=== PATIENT | male | born 1955 | race Caucasian/White ===

== ENCOUNTER → 2016-06-06 | Outpatient (REF) | payer OTHER ==
[~2016-06-06] MED LIST: IRON325T PO; MULT1TAB8 PO; VITA10002 PO
[2016-06-06 11:19] LABS: ALBUMIN 3.9 GM/DL (3.2-5.2); ALBUMIN/GLOBULIN RATIO 1.26 (1.00-1.93); BILIRUBIN,TOTAL 0.7 MG/DL (0.2-1.0); CALCIUM LEVEL 8.7 MG/DL (8.8-10.2); CREATININE FOR GFR 1.39 MG/DL (0.70-1.30); GLOMERULAR FILTRATION RATE 55.3 (>49); MAGNESIUM LEVEL 1.8 MG/DL (1.8-2.4); POTASSIUM SERUM 3.5 MEQ/L (3.5-5.1)
[2016-06-06 11:31] LABS: DIFF SLIDE NUMBER 188; MEAN CORPUSCULAR HGB CONC 34.7 g/dl (32.0-36.5); RED CELL DISTRIBUTION WIDTH 19.6 % (11.5-14.5); WHITE BLOOD COUNT 2.4 K/mm3 (4.0-10.0)
[2016-06-06 12:12] LABS: PLATELET COUNT, AUTOMATED 93 k/mm3 (150-450)
[2016-06-06 12:27] LABS: ANISOCYTOSIS 2+
== END ==
LOC: M SHH 10:40
PROVIDERS: ATTEND Internal Medicine
DX: C92.10 Chronic myeloid leukemia, BCR/ABL-positive, not having achieved remission (principal); E83.42 Hypomagnesemia

== ENCOUNTER → 2016-06-08 | Outpatient (REF) | payer OTHER ==
[2016-06-08 10:53] LABS: DIFF SLIDE NUMBER 170; MEAN CORPUSCULAR HEMOGLOBIN 35.1 pg (27.0-33.0); MEAN CORPUSCULAR VOLUME 100.3 fl (80.0-96.0); RED CELL DISTRIBUTION WIDTH 20.2 % (11.5-14.5)
[2016-06-08 11:10] LABS: PLATELET COUNT, AUTOMATED 65 k/mm3 (150-450); WHITE BLOOD COUNT 1.9 K/mm3 (4.0-10.0)
[2016-06-08 11:19] LABS: BLAST CELLS 3 % (0-0)
[2016-06-08 11:20] LABS: ANISOCYTOSIS 2+
[2016-06-08 11:21] LABS: TEAR DROP CELLS 1+
[2016-06-08 11:22] LABS: ALBUMIN 3.8 GM/DL (3.2-5.2); ALBUMIN/GLOBULIN RATIO 1.27 (1.00-1.93); BILIRUBIN,TOTAL 0.7 MG/DL (0.2-1.0); CALCIUM LEVEL 8.6 MG/DL (8.8-10.2); CREATININE FOR GFR 1.33 MG/DL (0.70-1.30); GLOMERULAR FILTRATION RATE 58.2 (>49); POTASSIUM SERUM 4.1 MEQ/L (3.5-5.1); TOTAL PROTEIN 6.8 GM/DL (6.4-8.2)
== END ==
LOC: M SHH 10:37
PROVIDERS: ATTEND Internal Medicine
DX: C93.00 Acute monoblastic/monocytic leukemia, not having achieved remission (principal); D89.813 Graft-versus-host disease, unspecified; Z94.81 Bone marrow transplant status

== ENCOUNTER → 2016-06-12 | Outpatient (REF) | payer OTHER ==
[2016-06-12 12:32] LABS: MEAN CORPUSCULAR HEMOGLOBIN 36.3 pg (27.0-33.0); MEAN CORPUSCULAR HGB CONC 35.7 g/dl (32.0-36.5); MEAN CORPUSCULAR VOLUME 101.9 fl (80.0-96.0); RED CELL DISTRIBUTION WIDTH 22.4 % (11.5-14.5); WHITE BLOOD COUNT 2.6 K/mm3 (4.0-10.0)
[2016-06-12 12:38] LABS: DIFF SLIDE NUMBER 224; PLATELET COUNT, AUTOMATED 33 k/mm3 (150-450)
[2016-06-12 12:42] LABS: ALBUMIN/GLOBULIN RATIO 1.33 (1.00-1.93); ALKALINE PHOSPHATASE 160 U/L (45-117); ALT/SGPT 58 U/L (12-78); ANION GAP 10 MEQ/L (8-16); AST/SGOT 20 U/L (15-37); BILIRUBIN,TOTAL 0.6 MG/DL (0.2-1.0); BLOOD UREA NITROGEN 14 MG/DL (7-18); CALCIUM LEVEL 8.6 MG/DL (8.8-10.2); CARBON DIOXIDE LEVEL 26 MEQ/L (21-32); CHLORIDE LEVEL 101 MEQ/L (98-107); GLOMERULAR FILTRATION RATE > 60.0 (>49); GLUCOSE, FASTING 99 MG/DL (80-110); POTASSIUM SERUM 3.8 MEQ/L (3.5-5.1); SODIUM LEVEL 137 MEQ/L (136-145); TRIGLYCERIDES LEVEL 346 MG/DL (<150)
[2016-06-12 13:06] LABS: HYPOCHROMASIA 1+
[2016-06-12 13:13] LABS: ANISOCYTOSIS 1+
== END ==
LOC: M LAB REF 11:20
PROVIDERS: ATTEND Internal Medicine
DX: C93.00 Acute monoblastic/monocytic leukemia, not having achieved remission (principal); D89.813 Graft-versus-host disease, unspecified; Z94.81 Bone marrow transplant status

== ENCOUNTER → 2016-06-13 | Outpatient (CLI) | payer OTHER ==
[~2016-06-13] MED LIST changes: +PENTAMIDINE ISETH NEB 300 MG SOLN VIAL INH ONE
== END ==
LOC: M CARPUL 14:49
PROVIDERS: ATTEND Internal Medicine Medical Oncology
DX: C93.12 Chronic myelomonocytic leukemia, in relapse (principal)

== ENCOUNTER → 2016-06-19 | Outpatient (REF) | payer OTHER ==
[~2016-06-19] MED LIST changes: -PENTAMIDINE ISETH NEB 300 MG SOLN VIAL INH ONE
[2016-06-19 09:59] LABS: DIFF SLIDE NUMBER 167; MEAN CORPUSCULAR HEMOGLOBIN 35.5 pg (27.0-33.0); MEAN CORPUSCULAR HGB CONC 33.2 g/dl (32.0-36.5); MEAN CORPUSCULAR VOLUME 106.8 fl (80.0-96.0); RED CELL DISTRIBUTION WIDTH 23.5 % (11.5-14.5); WHITE BLOOD COUNT 2.3 K/mm3 (4.0-10.0)
[2016-06-19 10:19] LABS: ALBUMIN 3.6 GM/DL (3.2-5.2); ALBUMIN/GLOBULIN RATIO 1.09 (1.00-1.93); ALKALINE PHOSPHATASE 188 U/L (45-117); ALT/SGPT 58 U/L (12-78); ANION GAP 11 MEQ/L (8-16); AST/SGOT 20 U/L (15-37); BILIRUBIN,TOTAL 0.4 MG/DL (0.2-1.0); BLOOD UREA NITROGEN 12 MG/DL (7-18); CALCIUM LEVEL 8.4 MG/DL (8.8-10.2); CARBON DIOXIDE LEVEL 25 MEQ/L (21-32); CHLORIDE LEVEL 103 MEQ/L (98-107); CREATININE FOR GFR 1.08 MG/DL (0.70-1.30); FERRITIN 769 NG/ML (26-388); FREE T4 0.94 NG/DL (0.76-1.46); GLOMERULAR FILTRATION RATE > 60.0 (>49); GLUCOSE, FASTING 99 MG/DL (80-110); POTASSIUM SERUM 3.8 MEQ/L (3.5-5.1); SODIUM LEVEL 139 MEQ/L (136-145); TOTAL PROTEIN 6.9 GM/DL (6.4-8.2); TRIGLYCERIDES LEVEL 165 MG/DL (<150); VITAMIN B12 LEVEL > 2000 PG/ML (247-911)
[2016-06-19 10:20] LABS: FOLATE > 24.0 NG/ML (>5.4)
[2016-06-19 10:23] LABS: PLATELET COUNT, AUTOMATED 29 k/mm3 (150-450)
[2016-06-19 10:34] LABS: BASOPHILS 3 % (0-4); BLAST CELLS 4 % (0-0); EOSINOPHILS 1 % (0-5)
[2016-06-19 10:35] LABS: ANISOCYTOSIS 2+; MICROCYTOSIS 1+
[2016-06-22 10:55] LABS: DIFF SLIDE NUMBER 184; MEAN CORPUSCULAR HEMOGLOBIN 37.1 pg (27.0-33.0); MEAN CORPUSCULAR VOLUME 105.8 fl (80.0-96.0); RED CELL DISTRIBUTION WIDTH 21.9 % (11.5-14.5); WHITE BLOOD COUNT 2.2 K/mm3 (4.0-10.0)
[2016-06-22 11:02] LABS: PLATELET COUNT, AUTOMATED 31 k/mm3 (150-450)
[2016-06-22 11:04] LABS: ALBUMIN 3.6 GM/DL (3.2-5.2); ALBUMIN/GLOBULIN RATIO 1.13 (1.00-1.93); ALKALINE PHOSPHATASE 193 U/L (45-117); ALT/SGPT 43 U/L (12-78); ANION GAP 9 MEQ/L (8-16); AST/SGOT 16 U/L (15-37); BILIRUBIN,TOTAL 0.8 MG/DL (0.2-1.0); BLOOD UREA NITROGEN 17 MG/DL (7-18); CALCIUM LEVEL 8.5 MG/DL (8.8-10.2); CARBON DIOXIDE LEVEL 25 MEQ/L (21-32); CHLORIDE LEVEL 102 MEQ/L (98-107); CREATININE FOR GFR 1.22 MG/DL (0.70-1.30); GLOMERULAR FILTRATION RATE > 60.0 (>49); GLUCOSE, FASTING 92 MG/DL (80-110); POTASSIUM SERUM 4.1 MEQ/L (3.5-5.1); SODIUM LEVEL 136 MEQ/L (136-145); TOTAL PROTEIN 6.8 GM/DL (6.4-8.2); TRIGLYCERIDES LEVEL 262 MG/DL (<150)
[2016-06-22 11:32] LABS: BLAST CELLS 6 % (0-0); EOSINOPHILS 1 % (0-5)
[2016-06-22 11:34] LABS: ANISOCYTOSIS 2+
== END ==
LOC: M LAB REF 09:30
PROVIDERS: ATTEND Internal Medicine
DX: D89.813 Graft-versus-host disease, unspecified (principal); Z94.81 Bone marrow transplant status; C93.10 Chronic myelomonocytic leukemia not having achieved remission

== ENCOUNTER 2016-06-22 17:51 | Outpatient (CLI) | payer OTHER | END 2016-06-23 02:03 | disposition home or self-care (01) | LOC: M OPCLI5PR 17:51 → M MS5PR 17:53 → M OPCLI5PR 06-23 02:03 | PROVIDERS: ATTEND Internal Medicine Medical Oncology | DX: C93.10 Chronic myelomonocytic leukemia not having achieved remission (principal) | CPT/HCPCS: 36430; 86850; 86900; 86901; 86920; P9038 ==

== ENCOUNTER → 2016-06-22 | Outpatient (REF) | payer OTHER | LOC: M LAB REF 12:47 | PROVIDERS: ATTEND Internal Medicine Medical Oncology | DX: C93.10 Chronic myelomonocytic leukemia not having achieved remission (principal) ==

== ENCOUNTER → 2016-06-22 | Outpatient (REF) | payer OTHER ==
[2016-06-22 10:55] LABS: DIFF SLIDE NUMBER 184; MEAN CORPUSCULAR HEMOGLOBIN 37.1 pg (27.0-33.0); MEAN CORPUSCULAR VOLUME 105.8 fl (80.0-96.0); RED CELL DISTRIBUTION WIDTH 21.9 % (11.5-14.5); WHITE BLOOD COUNT 2.2 K/mm3 (4.0-10.0)
[2016-06-22 11:02] LABS: PLATELET COUNT, AUTOMATED 31 k/mm3 (150-450)
[2016-06-22 11:04] LABS: ALBUMIN 3.6 GM/DL (3.2-5.2); ALBUMIN/GLOBULIN RATIO 1.13 (1.00-1.93); ALKALINE PHOSPHATASE 193 U/L (45-117); ALT/SGPT 43 U/L (12-78); ANION GAP 9 MEQ/L (8-16); AST/SGOT 16 U/L (15-37); BILIRUBIN,TOTAL 0.8 MG/DL (0.2-1.0); BLOOD UREA NITROGEN 17 MG/DL (7-18); CALCIUM LEVEL 8.5 MG/DL (8.8-10.2); CARBON DIOXIDE LEVEL 25 MEQ/L (21-32); CHLORIDE LEVEL 102 MEQ/L (98-107); CREATININE FOR GFR 1.22 MG/DL (0.70-1.30); GLOMERULAR FILTRATION RATE > 60.0 (>49); GLUCOSE, FASTING 92 MG/DL (80-110); POTASSIUM SERUM 4.1 MEQ/L (3.5-5.1); SODIUM LEVEL 136 MEQ/L (136-145); TOTAL PROTEIN 6.8 GM/DL (6.4-8.2); TRIGLYCERIDES LEVEL 262 MG/DL (<150)
[2016-06-22 11:32] LABS: BLAST CELLS 6 % (0-0); EOSINOPHILS 1 % (0-5)
[2016-06-22 11:34] LABS: ANISOCYTOSIS 2+
== END ==
LOC: M LAB REF 10:28
PROVIDERS: ATTEND Internal Medicine
DX: C92.10 Chronic myeloid leukemia, BCR/ABL-positive, not having achieved remission (principal); Z94.84 Stem cells transplant status; D84.9 Immunodeficiency, unspecified

== ENCOUNTER → 2016-06-26 | Outpatient (REF) | payer OTHER ==
[2016-06-26 12:04] LABS: DIFF SLIDE NUMBER 272; MEAN CORPUSCULAR HEMOGLOBIN 34.2 pg (27.0-33.0); MEAN CORPUSCULAR HGB CONC 35.2 g/dl (32.0-36.5); MEAN CORPUSCULAR VOLUME 97.2 fl (80.0-96.0); RED CELL DISTRIBUTION WIDTH 21.5 % (11.5-14.5); WHITE BLOOD COUNT 3.2 K/mm3 (4.0-10.0)
[2016-06-26 12:09] LABS: PLATELET COUNT, AUTOMATED 32 k/mm3 (150-450)
[2016-06-26 12:29] LABS: ALBUMIN 3.7 GM/DL (3.2-5.2); ALBUMIN/GLOBULIN RATIO 1.06 (1.00-1.93); ALKALINE PHOSPHATASE 269 U/L (45-117); ALT/SGPT 51 U/L (12-78); ANION GAP 12 MEQ/L (8-16); AST/SGOT 22 U/L (15-37); BILIRUBIN,TOTAL 0.7 MG/DL (0.2-1.0); BLOOD UREA NITROGEN 14 MG/DL (7-18); CALCIUM LEVEL 8.4 MG/DL (8.8-10.2); CARBON DIOXIDE LEVEL 21 MEQ/L (21-32); CHLORIDE LEVEL 105 MEQ/L (98-107); CREATININE FOR GFR 1.21 MG/DL (0.70-1.30); GLOMERULAR FILTRATION RATE > 60.0 (>49); GLUCOSE, FASTING 107 MG/DL (80-110); POTASSIUM SERUM 3.7 MEQ/L (3.5-5.1); SODIUM LEVEL 138 MEQ/L (136-145); TOTAL PROTEIN 7.2 GM/DL (6.4-8.2); TRIGLYCERIDES LEVEL 175 MG/DL (<150)
[2016-06-26 12:43] LABS: ANISOCYTOSIS 2+; BANDS 1 % (< 11); BLAST CELLS 6 % (0-0); POLYCHROMASIA 1+
== END ==
LOC: M LAB REF 11:51
PROVIDERS: ATTEND Internal Medicine
DX: C92.10 Chronic myeloid leukemia, BCR/ABL-positive, not having achieved remission (principal); Z94.84 Stem cells transplant status; D89.813 Graft-versus-host disease, unspecified

== ENCOUNTER → 2016-06-29 | Outpatient (REF) | payer OTHER ==
[2016-06-29 10:57] LABS: DIFF SLIDE NUMBER 191; MEAN CORPUSCULAR HEMOGLOBIN 33.5 pg (27.0-33.0); MEAN CORPUSCULAR HGB CONC 34.1 g/dl (32.0-36.5); MEAN CORPUSCULAR VOLUME 98.2 fl (80.0-96.0); RED CELL DISTRIBUTION WIDTH 22.6 % (11.5-14.5); WHITE BLOOD COUNT 3.2 K/mm3 (4.0-10.0)
[2016-06-29 11:00] LABS: PLATELET COUNT, AUTOMATED 36 k/mm3 (150-450)
[2016-06-29 11:12] LABS: ALBUMIN 3.7 GM/DL (3.2-5.2); ALBUMIN/GLOBULIN RATIO 1.09 (1.00-1.93); ALKALINE PHOSPHATASE 265 U/L (45-117); ALT/SGPT 38 U/L (12-78); ANION GAP 10 MEQ/L (8-16); AST/SGOT 20 U/L (15-37); BILIRUBIN,TOTAL 0.7 MG/DL (0.2-1.0); BLOOD UREA NITROGEN 15 MG/DL (7-18); CALCIUM LEVEL 8.5 MG/DL (8.8-10.2); CARBON DIOXIDE LEVEL 24 MEQ/L (21-32); CHLORIDE LEVEL 100 MEQ/L (98-107); CREATININE FOR GFR 1.24 MG/DL (0.70-1.30); GLOMERULAR FILTRATION RATE > 60.0 (>49); GLUCOSE, FASTING 93 MG/DL (80-110); POTASSIUM SERUM 3.7 MEQ/L (3.5-5.1); SODIUM LEVEL 134 MEQ/L (136-145); TOTAL PROTEIN 7.1 GM/DL (6.4-8.2)
[2016-06-29 11:18] LABS: ANISOCYTOSIS 3+; BANDS 1 % (< 11); BASOPHILS 2 % (0-4); BLAST CELLS 11 % (0-0); NUCLEATED RED BLOOD CELL 2 % (0-0)
== END ==
LOC: M LAB REF 10:33
PROVIDERS: ATTEND Internal Medicine
DX: C93.10 Chronic myelomonocytic leukemia not having achieved remission (principal); D89.813 Graft-versus-host disease, unspecified; Z94.81 Bone marrow transplant status

== ENCOUNTER → 2016-07-03 | Outpatient (REF) | payer OTHER ==
[2016-07-03 09:37] LABS: DIFF SLIDE NUMBER 148; MEAN CORPUSCULAR HEMOGLOBIN 33.3 pg (27.0-33.0); MEAN CORPUSCULAR HGB CONC 34.6 g/dl (32.0-36.5); MEAN CORPUSCULAR VOLUME 96.3 fl (80.0-96.0); RED CELL DISTRIBUTION WIDTH 22.2 % (11.5-14.5); WHITE BLOOD COUNT 4.5 K/mm3 (4.0-10.0)
[2016-07-03 10:05] LABS: PLATELET COUNT, AUTOMATED 48 k/mm3 (150-450)
[2016-07-03 10:08] LABS: ALBUMIN 3.7 GM/DL (3.2-5.2); ALBUMIN/GLOBULIN RATIO 1.12 (1.00-1.93); BILIRUBIN,TOTAL 0.5 MG/DL (0.2-1.0); CALCIUM LEVEL 8.4 MG/DL (8.8-10.2); CREATININE FOR GFR 1.36 MG/DL (0.70-1.30); GLOMERULAR FILTRATION RATE 56.7 (>49); POTASSIUM SERUM 3.6 MEQ/L (3.5-5.1)
[2016-07-03 10:09] LABS: BLAST CELLS 22 % (0-0); NUCLEATED RED BLOOD CELL 1 % (0-0)
[2016-07-03 10:11] LABS: ANISOCYTOSIS 3+
== END | disposition home or self-care (01) ==
LOC: M LAB REF 09:22
PROVIDERS: ATTEND Internal Medicine
DX: C93.10 Chronic myelomonocytic leukemia not having achieved remission (principal); D89.813 Graft-versus-host disease, unspecified; Z94.81 Bone marrow transplant status

== ENCOUNTER → 2016-07-06 | Outpatient (REF) | payer OTHER ==
[~2016-07-06] MED LIST changes: +ACYC1CAP8 PO; +ALBU17IN INH; +AZIT250T3 PO; +FLOM5CAP PO; +FLUC200T2 PO; +MAGN1TAB25 PO; +MONT10TA2 PO; +PANT40TA2 PO; +PERI0.126 MT; +SIRO1TAB3 PO; +SYMB16INH INH; +TRIA1CR TOP
[2016-07-06 10:08] LABS: DIFF SLIDE NUMBER 176; MEAN CORPUSCULAR HEMOGLOBIN 32.6 pg (27.0-33.0); MEAN CORPUSCULAR HGB CONC 33.8 g/dl (32.0-36.5); MEAN CORPUSCULAR VOLUME 96.4 fl (80.0-96.0); RED CELL DISTRIBUTION WIDTH 22.4 % (11.5-14.5); WHITE BLOOD COUNT 6.3 K/mm3 (4.0-10.0)
[2016-07-06 10:22] LABS: PLATELET COUNT, AUTOMATED 38 k/mm3 (150-450)
[2016-07-06 10:28] LABS: BLAST CELLS 26 % (0-0); EOSINOPHILS 1 % (0-5); NUCLEATED RED BLOOD CELL 1 % (0-0)
[2016-07-06 10:29] LABS: ANISOCYTOSIS 3+
[2016-07-06 10:35] LABS: ALBUMIN 3.5 GM/DL (3.2-5.2); ALBUMIN/GLOBULIN RATIO 1.09 (1.00-1.93); BILIRUBIN,TOTAL 0.5 MG/DL (0.2-1.0); CALCIUM LEVEL 8.3 MG/DL (8.8-10.2); CREATININE FOR GFR 1.43 MG/DL (0.70-1.30); GLOMERULAR FILTRATION RATE 53.5 (>49); POTASSIUM SERUM 3.8 MEQ/L (3.5-5.1); TOTAL PROTEIN 6.7 GM/DL (6.4-8.2)
== END ==
LOC: M LAB REF 09:51
PROVIDERS: ATTEND Internal Medicine
DX: C93.10 Chronic myelomonocytic leukemia not having achieved remission (principal); D89.813 Graft-versus-host disease, unspecified

== ENCOUNTER 2016-07-10 10:12 | Inpatient (IN) | payer OTHER ==
[~2016-07-10] VITALS: Ht 172.7 cm; Wt 60.5 kg
[~2016-07-10 10:12] MED LIST changes: -ACYC1CAP8 PO; -ALBU17IN INH; -AZIT250T3 PO; -FLOM5CAP PO; -FLUC200T2 PO; -MAGN1TAB25 PO; -MONT10TA2 PO; -PANT40TA2 PO; -PERI0.126 MT; -SIRO1TAB3 PO; -SYMB16INH INH; -TRIA1CR TOP
[2016-07-10] MEDS ORDERED: IPRATROPIUM 0.5MG/ALBUTEROL 2.5MG INH SOL UD 3ML (DUONEB)(J7620) As Ordered ONE (10:50)
[2016-07-10] MEDS ORDERED: ALBUTEROL SULFATE 2.5 MG/0.5 ML INH NEB SOLN As Ordered ONE (10:50)
[2016-07-10 11:11] LABS: ABG BASE EXCESS 1.4 (-2.0-2.0); ABG DEVICE NASAL CANN; ABG HCO3 23.7 MEQ/L (22.0-26.0); ABG PARTIAL PRESSURE CO2 28.4 mmHg (35.0-45.0); ABG PARTIAL PRESSURE O2 87.1 mmHg (75.0-100.0); ABG STANDARD HCO3 25.7 MEQ/L (22.0-26.0); ABG TOTAL CO2 24.6 MEQ/L (23.0-31.0)
--- NOTE | 2016-07-10 11:32 | REP ---
AP PORTABLE CHEST: 07/10/2016. Comparison: 04/03/2016, 10/17/2005 chest x-ray, CT chest 04/21/2016. Clinical history: Cough. Findings: There is an indwelling port catheter via the right jugular route with tip in SVC unchanged. Lungs are hyperinflated. Linear atelectatic change left CP angle and left lateral base is resolved from previous study. There is basilar and other interstitial fibrotic change, mild but diffuse. There is right infrahilar subsegmental atelectatic of the patchy density there. No dense consolidation. There is no gross cardiomegaly allowing for portable technique. The aorta is normal. Airway intact. No nodule, acute infiltrate, gross effusion or mass. No widening of the mediastinum. Bones intact. Impression: 1. Underlying interstitial fibrosis without gross infiltrate, nodule, effusion or edema. Some subtle right infrahilar patchy atelectasis suggested. The linear atelectatic changes in the left CP angle and left lateral base are resolved since the March 2016 study. Signed by Keo Urrutia MD 07/10/2016 04:21 P
[2016-07-10 11:46] LABS: DIFF SLIDE NUMBER 172; MEAN CORPUSCULAR HEMOGLOBIN 32.4 pg (27.0-33.0); MEAN CORPUSCULAR HGB CONC 34.1 g/dl (32.0-36.5); MEAN CORPUSCULAR VOLUME 95.2 fl (80.0-96.0); RED CELL DISTRIBUTION WIDTH 20.5 % (11.5-14.5); WHITE BLOOD COUNT 8.5 K/mm3 (4.0-10.0)
[2016-07-10 11:50] LABS: PLATELET COUNT, AUTOMATED 26 k/mm3 (150-450)
[2016-07-10 12:09] LABS: ALBUMIN 3.2 GM/DL (3.2-5.2); ALBUMIN/GLOBULIN RATIO 0.89 (1.00-1.93); ALKALINE PHOSPHATASE 209 U/L (45-117); ALT/SGPT 22 U/L (12-78); AMYLASE 43 U/L (25-115); ANION GAP 14 MEQ/L (8-16); AST/SGOT 20 U/L (15-37); BILIRUBIN,DIRECT 0.1 MG/DL (0.0-0.2); BILIRUBIN,TOTAL 0.4 MG/DL (0.2-1.0); BLOOD UREA NITROGEN 16 MG/DL (7-18); CALCIUM LEVEL 8.3 MG/DL (8.8-10.2); CARBON DIOXIDE LEVEL 23 MEQ/L (21-32); CHLORIDE LEVEL 92 MEQ/L (98-107); CREATININE FOR GFR 1.32 MG/DL (0.70-1.30); GLOMERULAR FILTRATION RATE 58.7 (>49); GLUCOSE, FASTING 114 MG/DL (80-110); MAGNESIUM LEVEL 2.1 MG/DL (1.8-2.4); PHOSPHORUS LEVEL 3.5 MG/DL (2.5-4.9); POTASSIUM SERUM 3.7 MEQ/L (3.5-5.1); SODIUM LEVEL 129 MEQ/L (136-145); TOTAL PROTEIN 6.8 GM/DL (6.4-8.2)
[2016-07-10 12:13] LABS: BLAST CELLS 21 % (0-0)
[2016-07-10 12:14] LABS: ANISOCYTOSIS 2+; POLYCHROMASIA 1+; SMUDGE CELLS 1+
--- NOTE | 2016-07-10 12:16 | REP ---
CT HEAD WITHOUT CONTRAST: HISTORY: Weakness. Areas of decreased attention are present in the periventricular white matter. This represents small vessel ischemic disease. There is no intraparenchymal hemorrhage, mass or midline shift. The ventricular system and cortical sulci are dilated consistent with mild volume loss. There is no extracerebral collection. Mucosal thickening is present in the ethmoid, sphenoid and frontal sinuses, and left mastoid air cells. IMPRESSION: 1. Small vessel ischemic disease. 2. Mild volume loss. Signed by Dereje Elkins MD 07/10/2016 12:17 P
[2016-07-10] MEDS ORDERED: PANT40TA2 PO (12:55)
[2016-07-10] MEDS ORDERED: PERI0.126 MT (12:55)
[2016-07-10] MEDS ORDERED: MAGN1TAB25 PO (12:55)
[2016-07-10] MEDS ORDERED: TRIA1CR TOP (12:55)
[2016-07-10] MEDS ORDERED: AZIT250T3 PO (12:55)
[2016-07-10] MEDS ORDERED: FLUC200T2 PO (12:55)
[2016-07-10] MEDS ORDERED: SYMB16INH INH (12:55)
[2016-07-10] MEDS ORDERED: ALBU17IN INH (12:55)
[2016-07-10] MEDS ORDERED: FLOM5CAP PO (12:55)
[2016-07-10] MEDS ORDERED: ACYC1CAP8 PO (12:55)
[2016-07-10] MEDS ORDERED: SIRO1TAB3 PO (12:55)
[2016-07-10] MEDS ORDERED: MONT10TA2 PO (12:55)
[2016-07-10] MEDS ORDERED: ISOVUE-370 76% 100ML VIAL (Q9967) As Ordered ONE ×2 (13:00→15:19)
[2016-07-10] MEDS ORDERED: NS 1,000 ML IV SCH (13:23)
[2016-07-10] MEDS ORDERED: HEPARIN SOD (PORCINE) 5000 UNITS/ML VIAL SC SCH (13:30)
--- NOTE | 2016-07-10 14:53 | HPEPDOC ---
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 Patient noted that over the last few weeks he has been experiencing numbness and tingling of his hands, specifically thumbs. Then it progressed to his feet bilaterally. Over the last 1 week, he has been having weakness of his legs he notes that it was slow progression. He initially had difficulty with ambulation and imbalance, then requiring a walker and then finally the inability to walk. He denied any trauma or injury. He notes that he has no visual problems, slurred speech or facial weakness. He attributed his symptoms to chemotherapy. Patient also noted a productive cough with yellow / green sputum, no blood. He reports worsening shortness of breath over the last 2 weeks. He denies any fevers or chills at home. Denies any chest pain, palpitations or leg swelling. He does not that he is chronically on Azithromycin 3 times per week. He denies nausea, vomiting, abdominal pain, constipation, diarrhea, or dysuria. Home Medications Scheduled (Acyclovir) 200 Mg Cap 400 MG PO BID (Reported) Azithromycin (Azithromycin) 250 Mg Tab 250 MG PO 3XW (Reported) TAKES MON/WED/FRI AT LUNCH TIME Budesonide/Formoterol (Symbicort 160-4.5 Mcg/Act) 60 Puff/Inhaler Aers 2 PUFF INH BID (Reported) Fluconazole (Fluconazole) 200 Mg Tab 200 MG PO QHS (Reported) Magnesium Oxide (Magnesium) 400 Mg Tab 400 MG PO BID (Reported) Montelukast Sodium (Montelukast Sodium) 10 Mg Tab 10 MG PO QHS (Reported) Pantoprazole Sodium (Pantoprazole Sodium) 40 Mg Tab 40 MG PO DAILY (Reported) Sirolimus (Sirolimus) 1 Mg Tab 1 MG PO DAILY (Reported) Tamsulosin Hydrochloride (Flomax) 0.4 Mg Cap 1 CAP PO BID (Reported) once daily 1/2 hour following the same meal each day Triamcinolone Acet (Triamcinolone Acetonide 0.1% Crm) 1 Dose/15 Gm Cr 1 DOSE TOP BID (Reported) APPLIED OVER ENTIRE BODY Scheduled PRN Albuterol Sulfate (Ventolin Hfa) 200 Puff/8 Gm Aers 2 PUFF INH QID PRN PRN SHORTNESS OF BREATH (Reported) Chlorhexidine Gluconate (Peridex) 0.12 % Kathy 15 ML MT BID PRN PRN BLEEDING GUMS (Reported) Allergies Coded Allergies: No Known Allergies (Unverified , 02/05/15) Past Medical History Medical History 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 Review of Symptoms Other systems Constitutional: Positive weight loss, Loss of appetite, No recent trauma Eyes: No visual changes or eye pain Ears, Nose, Throat: Denies nose bleeds, or difficulty swallowing Cardiovascular: Denies chest pain, sweating, or orthopnea Respiratory: Positive productive cough, No wheezing, Positive shortness of breath GI: Christian nausea, vomiting, abdominal pain, diarrhea or constipation : Denies pain with urination or frequency Musculoskeletal: Denies joint pain or swelling Neuro / Psych: Weakens of hands and feet, numbness and tingling bilaterally Skin: No skin rashes noted All other review of systems negative; otherwise stated in history of present illness Vital Signs - Vitals: BP 129/72, HR 104, RR 18, Sat 95%4LNC, Temp 99.3F - General: Lying in bed, No acute distress, Speaking in full sentences, AAOx3 - HEENT: NC, AT, PERRLA, EOMI - CVS: Tachycardic, regular rhythm, +S1S2, - Lungs: Fair air entry bilaterally, Clear to auscultation, Course lung sounds bilaterally - Abdomen: Soft, Non-distended, Non-tender, + Bowel sounds x 4 - Extremities: + PPx4, No lower extremity edema, No calf tenderness - Neuro: 3/5 muscle strength at feet b/l, 4/5 at leg b/l, 3/5 at hands b/l, 4/5 and upper arm b/l, reports sensory changes b/l of upper and lower extremities - Skin: No visible rashes Laboratory Data Labs 24H Laboratory Tests 2 07/10/16 10:21: Bedside Glucose (Misc Panel) 107 07/10/16 11:01: Arterial Blood pH 7.540H, Arterial Blood Partial Pressure CO2 28.4L, Arterial Blood Partial Pressure O2 87.1, Arterial Blood Total CO2 24.6, Arterial Blood HCO3 23.7, Arterial Blood Base Excess 1.4, Arterial Blood Oxygen Saturation 97.1 , Blood Gas Bicarbonate Standard 25.7, Oxygen Delivery Device NASAL OSIEL 07/10/16 11:30: Aspartate Amino Transf (AST/SGOT) 20, Alanine Aminotransferase (ALT/SGPT) 22, Alkaline Phosphatase 209H, Total Bilirubin 0.4, Direct Bilirubin 0.1, Albumin 3.2, Albumin/Globulin Ratio 0.89L, Amylase Level 43, Anion Gap 14, Anisocytosis 2+, Atypical Lymphocytes 3, Blastocytes 21H, Calcium Level 8.3L, Creatine Kinase MB 1.3, Creatine Kinase MB Relative Index 1.26, Glomerular Filtration Rate 58.7, Lactic Acid (Sepsis) 1.1, Lipase 118, Lymphocytes (Manual) 8L, Macrocytosis 1+, Magnesium Level 2.1, Monocytes (Manual) 1, Neutrophils 67, Phosphorus Level 3.5, Platelet Estimate MARKED DECREASE, Polychromasia 1+, Smudge Cells 1+, Total Creatine Kinase 103, Total Protein 6.8, Troponin I < 0.02 CBC/BMP Laboratory Tests 07/10/16 11:30 Red Blood Count 2.20 L, Mean Corpuscular Volume 95.2, Mean Corpuscular Hemoglobin 32.4, Mean Corpuscular Hemoglobin Concent 34.1, Red Cell Distribution Width 20.5 H Microbiology Microbiology 07/10/16 Blood Culture, Received Pending 07/10/16 Blood Culture, Received Pending Plan / VTE VTE Prophylaxis Ordered?: Yes Plan Plan Weakness of hands and feet possibly 2/2 GBS, possibly 2/2 cytotoxic effect from chemotherapy, less likely 2/2 cervical - Reports that this has been going on for 2 weeks - Attributed this to chemotherapy and transfusions - Weakness of lower extremities and upper extremities (distal worse than proximal) - CT head negative for acute pathology - Will get stat lumbar puncture to evaluate for increase proteins an oligoclonal bands - Will keep in ICU to monitor for respiratory depression and frequent neurologic checks - Discussed case with neurology (Dr. Ryan) will be on consult Dyspnea 2/2 acute hypoxic respiratory failure possibly 2/2 HCAP, possibly 2/2 PE - Presented with productive cough for 2 weeks, no reported fevers or chills - CXR shows underlying interstitial fibrosis without gross infiltrate, nodule, effusion or edema - No leukocytosis; however WBC count is normal given history of pancytopenia - Will get CTA to evaluate for PE - Will check blood cultures and sputum culture - Will start vancomycin and zosyn and IV fluid hydration Normocytic anemia likely 2/2 chemotherapy and underlying malignancy, possible dysplastic disorder - Hg slightly below baseline of 8 - Will check reticulocyte count and iron panel - Discussed with Heme/Onc (Dr. Day) will give 2 units PRBC transfusion with irradiated and CMV negative blood Thrombocytopenia - Platelet count of 26, below baseline - However no signs of bleeding at this time - Discussed with Heme/Onc; will not need to transfuse unless bleeding or if platelet count is below 15 - However given that he will be going to lumbar puncture will tranfuse platelets to 100 CKD3 - Creatinine appears to be at baseline since early June - Will check urine electrolytes and osmolality - Will c/w IV fluid hydration for infection above CML - s/p stem cell transplant September 2013 - Has been on chemotherapy [Azacitidine], Tacrolimus then Sirolimus History of graft versus host - Has been on acyclovir and azithromycin - Gastrointestinal prophylaxis - Will start protonix DVT prophylaxis - Will start SCDs for now; will hold on heparin until after lumbar puncture ISA CRUZ MD Jul 10, 2016 14:53
[2016-07-10] MEDS ORDERED: ALBUTEROL 90 MCG/ACT 8GM HFA INHALER INH PRN (15:00)
[2016-07-10] MEDS ORDERED: CHLORHEXIDINE GLUCONATE 0.12 % 15ML UDC (PERIDEX ORAL RINSE) MT PRN (15:00)
--- NOTE | 2016-07-10 15:12 | PHACANCOPD ---
PHARMACY VANCOMYCIN DOSING Pt Demographics Demographics Patient Age:60 , Weight: , Gender: male Adjusted Body Weight Date: 07/10/16, Adjusted Body Weight: Kg Events Past 24 Hours Events Past 24 Hours: YES: Other (Worsening SOB over past 2 weeks, productive cough ), Pending Diagnostics Vancomycin Vancomycin indication: HCAP Vancomycin Target Ranges: 15-20 mcg/ml Vancomycin Load Y/N: Yes Load Dose Date Time Vancomycin Load Dose: 1500mg Date: 07/10/16 Time: Vancomycin Dose Date: 07/10/16. Current Vancomycin Dose: [1g IV Q12H] Intermittent Dosing?: No Labs Labs Item Value Date Time White Blood Count 8.5 K/mm3 07/10/16 1130 Platelet Count 26 k/mm3 *L 07/10/16 1130 Creatinine 1.32 MG/DL H 07/10/16 1130 Micro Microbiology 07/10/16 Blood Culture, Received Pending 07/10/16 Blood Culture, Received Pending Creatinine Clearance Date:07/10/16. Estimated Creatinine Clearance: [~56.9ml/min]. Assessment and Plan Maintaining Current Dose?: Yes Reason for dose change: No Dose Change Pharmacist Note Pharmacist Note Date: 07/10/16. Pharmacist note: Day #1 empiric zosyn/vancomycin initiated with a 1500mg loading dose, followed by a maintenance regimen of 1g IV Q12H for the treatment of HCAP - aiming for a goal trough of 15-20 mcg/ml. WBC currently WNL , and scr currently elevated - baseline ~ 1.08. 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 No PMH of vanco use or MRSA here at [facility]. We will monitor the patient and scheduled a trough accordingly. ALVA SMITH [facility]ARM[facility] Jul 10, 2016 15:12
--- NOTE | 2016-07-10 15:54 | EDDOCDS ---
Physician Documentation [facility] Name: Jacob Almaguer Age: 60 yrs Sex: Male : 1955 Arrival Date: 07/10/2016 Time: 10:12 Bed 5 Private MD: Disposition: 07/10 13:04 Critical Care:. ml Disposition: 07/10/16 13:03 Hospitalization ordered by Michael Diaz for Inpatient Admission. 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 - Bed requested for PCU. - Status is Inpatient Admission. kc3 - Condition is Stable. - Problem is new. - Symptoms are unchanged. Historical: - Allergies: no known allergies; - Home Meds: 1. montelukast 10 mg oral tab 1 tab once daily 2. pantoprazole 40 mg oral TbEC 1 tab once daily 3. sirolimus 1 mg oral tab once daily 4. tamsulosin 0.4 mg oral cp24 1 cap once daily 5. triamcinolone 0.1% twice a day cream 6. acyclovir 200 mg Oral cap 2 caps 2 times per day 7. azithromycin 250 mg Oral tab 3 times a week 8. Chlorhexidine 0.12% solution 15mLs by mouth 2 times a day, swish and spit out. 9. fluconazole 200 mg Oral tab 1 tab once daily 10. Magnesium 1 tab twice a day - PMHx: Leukemia; Umbilical hernia; Bone marrow transplant; Stem cell transplant; - PSHx: fracture repair to right thumb; - Social history: Smoking status: Patient states was never smoker of tobacco. No barriers to communication noted, The patient speaks fluent Jamaican, Speaks appropriately for age. - Family history: Not pertinent. - : The pt / caregiver states he / she is not on anticoagulants. Home medication list is obtained from the patient. - Exposure Risk Screening:: None identified. Vital Signs: 10:21 BP 129 / 72 (auto/); hs1 10:23 Pulse 104 MON; Resp 18; Pulse Ox 95% ; Weight 58.97 kg / 130.01 lbs; Height 5 ft. 8 in. hs1 (172.72 cm); Pain 0/10; 10:27 Temp 99.3(TE); hs1 10:51 BP 148 / 61 (auto/); kc3 10:51 Pulse 102 MON; Pulse Ox 94% ; kc3 11:21 BP 129 / 66 (auto/); kc3 11:21 Pulse 104 MON; Pulse Ox 95% ; kc3 11:51 BP 124 / 59 (auto/); kc3 11:51 Pulse 102 MON; Pulse Ox 95% ; kc3 12:21 BP 125 / 61 (auto/); kc3 12:21 Pulse 104 MON; Pulse Ox 94% ; kc3 12:50 Pulse 96 MON; Pulse Ox 94% ; kc3 12:51 BP 109 / 61 (auto/); kc3 13:21 BP 118 / 58 (auto/); kc3 13:21 Pulse 98 MON; Pulse Ox 97% ; kc3 13:51 BP 125 / 64 (auto/); kc3 13:51 Pulse 98 MON; Pulse Ox 96% ; kc3 14:21 BP 106 / 72 (auto/); kc3 14:21 Pulse 100 MON; Pulse Ox 96% ; kc3 14:51 BP 108 / 57 (auto/); kc3 14:51 Pulse 98 MON; Pulse Ox 95% ; kc3 15:43 BP 124 / 60 LA Sitting (auto/reg); Pulse 70; Resp 20; Temp 99.9(TE); Pulse Ox 96% on bnb R/A; Pain 0/10; 10:23 Body Mass Index 19.77 (58.97 kg, 172.72 cm) hs1 MDM: 10:42 IV Saline Lock ordered. ml 10:42 -Blood Culture (Adults Only), peripheral from different site, or from device/port/PICC ml etc. if present ordered. 10:42 Albuterol 5 mg Nebulizer once ordered. ml 10:42 Albuterol-Ipratropium 3 ml Inhalation once ordered. ml 10:42 Call Respiratory ordered. ml 10:42 Call Respiratory ordered. ml 10:42 CBC with Diff Ordered. EDMS 10:42 MED Profile Ordered. EDMS 10:43 Liver Profile Ordered. EDMS 10:43 Amylase Ordered. EDMS 10:43 Lipase Ordered. EDMS 10:43 -Blood Culture Ordered. EDMS 10:43 CIP Ordered. EDMS 10:43 Troponin Ordered. EDMS 10:43 Lactic Acid (Morton tube on ice) Ordered. EDMS 10:43 -Arterial Blood Gas Ordered. EDMS 10:43 Magnesium Level Ordered. EDMS 10:43 Phosphorous Level Ordered. EDMS 10:43 ECG WITH READING ER PHYS+CARDIAG ordered. EDMS 10:44 Chest, 1 View Ordered. EDMS 10:44 CT Head Without Contrast Ordered. EDMS 10:46 BED REQUEST+ADM ordered. EDMS 11:00 Call Respiratory complete. deg 11:03 -Blood Culture (Adults Only), peripheral from different site, or from device/port/PICC deg etc. if present complete. 11:04 BLOOD CULTURES Ordered. EDMS 11:51 DIFFERENTIAL NO CHARGE Ordered. EDMS 11:51 PLATELET ESTIMATE Ordered. EDMS 11:53 Call Respiratory complete. kc3 11:57 CBC with Diff Reviewed. ml 11:57 -Arterial Blood Gas Reviewed. ml 12:00 TYPE & SCREEN Ordered. EDMS 12:09 Fingerstick Blood Sugar Ordered. EDMS 12:39 CBC with Diff Reviewed. ml 12:39 MED Profile Reviewed. ml 12:39 Liver Profile Reviewed. ml 12:39 Amylase Reviewed. ml 12:39 Lipase Reviewed. ml 12:39 CIP Reviewed. ml 12:39 Troponin Reviewed. ml 12:39 Lactic Acid (Morton tube on ice) Reviewed. ml 12:39 Magnesium Level Reviewed. ml 12:39 Phosphorous Level Reviewed. ml 12:39 PLATELET ESTIMATE Reviewed. ml 12:39 Fingerstick Blood Sugar Reviewed. ml 12:39 Chest, 1 View Reviewed. ml 12:39 CT Head Without Contrast Reviewed. ml 12:59 CT Chest Angio R/O PE Ordered. EDMS 13:10 [facility] Payment Agreement was scanned into [employer] and attached to record. jp5 13:10 Financial registration complete. jp5 13:32 URINALYSIS Ordered. EDMS 13:32 URINE CULTURE Ordered. EDMS 13:34 Admission / Observation Status ordered. EDMS 13:34 2 GRAM SODIUM DIET ordered. EDMS 13:53 OLIGOCLONAL BANDS, CSF Ordered. EDMS 13:53 IMMUNOGLOBULIN G CSF Ordered. EDMS 13:53 CSF GLUCOSE Ordered. EDMS 13:53 CSF T PROTEIN Ordered. EDMS 13:53 CSF BACTERIAL ANTIGENS Ordered. EDMS 13:53 CELL COUNT/DIFF CSF Ordered. EDMS 13:53 CSF CULTURE AND GRAM STAIN Ordered. EDMS 13:54 VIRAL CULTURE Ordered. EDMS 13:54 FUNGUS SMEAR & CULTURE Ordered. EDMS 13:54 NON MOTOR HOTEL MANAGER/CYTOLOGY REQ FOR SERVI Ordered. EDMS 13:54 NON MOTOR HOTEL MANAGER/CYTOLOGY REQ FOR SERVI Ordered. EDMS 13:56 IRRADIAT LEUKOREDUC PACK CELLS Ordered. EDMS 13:59 PCR was scanned into [email or web address] and attached to record. gb 14:48 SPUTUM CULTURE AND GRAM STAIN Ordered. EDMS 15:02 PHERESIS PLATELETS Ordered. EDMS 15:10 FLUORO GUID FOR NEEDLE PLACEMT Ordered. EDMS Administered Medications: 11:37 Drug: Albuterol 5 mg [albuterol sulfate 2.5 mg/0.5 mL solution for nebulization (1 mL)] kjn Route: Nebulizer; 11:37 Drug: Albuterol-Ipratropium 3 ml [ipratropium-albuterol 0.5 mg-3 mg(2.5 mg base)/3 mL kjn nebulization soln (3 mL)] Route: Inhalation; Critical Care Time: 13:04 Critical care time: Bedside Care: 90 minutes, Consultation: 10 minutes. Total time: 100 ml minutes Signatures: Dispatcher [employer] EDMS Tahira Hi MD MD ml Deisy Hobbs, Hair Dryer Unit deg Radha Jovel, Reg Reg gb Ignacia Muniz RN RN hs1 Juani Benedict jp5 Lupe Butler RN RN kc3 Carlene Armstrong RN RN lmg Navarra, Katherine kjn The chart was reviewed and I authenticate all verbal orders and agree with the evaluation and treatment provided.Corrections: (The following items were deleted from the chart) 13:52 13:34 TYPE & SCREEN ordered. EDMS EDMS 13:55 11:59 PACKED CELLS+BBK ordered. EDMS EDMS 13:55 13:52 IRRADIAT LEUKOREDUC PACK CELLS ordered. EDMS EDMS 13:56 13:52 TYPE & SCREEN ordered. EDMS EDMS 15:49 13:51 FLUORO GUID FOR NEEDLE PLACEMT ordered. EDMS EDMS Attachments: 13:10 [facility] Payment Agreement [email or web address]
--- NOTE | 2016-07-10 15:54 | EDDOCDS ---
Nurse's Notes 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 Patient states coughing up yellow sputum for the past couple of weeks. The last date and time the patient was known to be well was was at 10:17 on July 10, 2016. No acute neurological deficit is noted. Pre-hospital glucose is not applicable to this patient. Adult Sepsis Screening: The patient does not have new or worsening altered mentation. Patient's respiratory rate is less than 22. Systolic blood pressure is greater than 100. Patient has a qSOFA score of 0- Negative Sepsis Screen. Suicide/Homicide risk assessment- the patient denies having any suicidal and/or homicidal ideations and does not present with any other emotional, behavioral or mental health complaints. Status: Patient is not a building services coordinator or dependent. Transition of care: patient was not received from another setting of care. 10:14 Acuity: GIGI Level 3 hs1 10:14 Method Of Arrival: Ambulance hs1 Triage Assessment: 10:22 The onset of the patients symptoms was more than three hours ago. General: Appears in hs1 no apparent distress, Behavior is appropriate for age, cooperative. Pain: Denies pain. Neurological: Level of Consciousness is awake, alert, obeys commands, Reports progressive weakness -daughter and states that he has progressed from being able to walk to now walking with walker to no not able to walk. Patient also states increased neuropathy - tingling in hands and feet. Patient having difficulty moving feet. . Cardiovascular: Rhythm is sinus rhythm with unifocal PVCs. Derm: Skin is dry, very dry. Skin is normal. 12:53 HIV screening NA for this visit Offered previously. kc3 Historical: - Allergies: no known allergies; - Home Meds: 1. montelukast 10 mg oral tab 1 tab once daily 2. pantoprazole 40 mg oral TbEC 1 tab once daily 3. sirolimus 1 mg oral tab once daily 4. tamsulosin 0.4 mg oral cp24 1 cap once daily 5. triamcinolone 0.1% twice a day cream 6. acyclovir 200 mg Oral cap 2 caps 2 times per day 7. azithromycin 250 mg Oral tab 3 times a week 8. Chlorhexidine 0.12% solution 15mLs by mouth 2 times a day, swish and spit out. 9. fluconazole 200 mg Oral tab 1 tab once daily 10. Magnesium 1 tab twice a day - PMHx: Leukemia; Umbilical hernia; Bone marrow transplant; Stem cell transplant; - PSHx: fracture repair to right thumb; - Social history: Smoking status: Patient states was never smoker of tobacco. No barriers to communication noted, The patient speaks fluent Portuguese, Speaks appropriately for age. - Family history: Not pertinent. - : The pt / caregiver states he / she is not on anticoagulants. Home medication list is obtained from the patient. - Exposure Risk Screening:: None identified. Screenin:47 Screening information is obtained from the patient. Fall risk: At risk due to weakness. kc3 Assistance ADL's: requires no assistance with activities of daily living. Abuse/DV Screen: The patient / caregiver reports he/she is: not in a situation that causes fear, pain or injury. Nutritional screening: No deficits noted. Advance Directives: Currently, there is a health care proxy, Christa Almaguer, . There is no active DNR order. There is a living will, but a copy is not available at this time. home support is adequate. Assessment: 10:30 General: Appears in no apparent distress, comfortable, Behavior is appropriate for age, kc3 cooperative. Pain: Denies pain. Neurological: Level of Consciousness is awake, alert, obeys commands, Oriented to person, place, time. 11:00 General: Appears in no apparent distress, comfortable, Behavior is appropriate for age, kc3 cooperative. Pain: Denies pain. Neurological: Level of Consciousness is awake, alert, obeys commands, Oriented to person, place, time. Cardiovascular: Rhythm is sinus tachycardia. Respiratory: Airway is patent Respiratory effort is even, unlabored, Breath sounds are coarse bilaterally. Reports cough that is productive. Derm: Skin is fragile, Skin is dry, Skin is normal. Musculoskeletal: Circulation, motion, and sensation intact. 12:00 General: Appears in no apparent distress, comfortable, Behavior is appropriate for age, kc3 cooperative, Pt resting on stretcher with no complaints at this time. Per Dr. Morton, pt allowed to take home transplant meds. Family at bedside. . Pain: Denies pain. Neurological: Level of Consciousness is awake, alert, obeys commands, Oriented to person, place, time. Cardiovascular: Rhythm is irregular. Respiratory: Airway is patent Respiratory effort is even, unlabored. Derm: see above note. 12:45 General: Appears in no apparent distress, comfortable, Behavior is appropriate for age, kc3 cooperative, Pt assisted to comfortable position in bed. Family at bedside. . Pain: Denies pain. Neurological: Level of Consciousness is awake, alert, obeys commands, Oriented to person, place, time, Reports weakness. Cardiovascular: Rhythm is irregular. Respiratory: Airway is patent Respiratory effort is even, unlabored. Derm: See above note. Musculoskeletal: Circulation, motion, and sensation intact. 13:30 General: Appears in no apparent distress, comfortable, Behavior is appropriate for age, kc3 cooperative, Pt resting on stretcher with family at bedside with no complaints at this time. . Pain: Denies pain. Neurological: Level of Consciousness is awake, alert, obeys commands. Cardiovascular: Rhythm is irregular. Respiratory: Airway is patent Respiratory effort is even, unlabored. Derm: see above note. 14:40 General: Appears in no apparent distress, comfortable, Pt resting on stretcher appears kc3 to be sleeping. No complaints reported. Family at bedside. Pt updated on plan of care. Respirations even and unlabored. Pt remains on oxygen while sleeping. Cardiac rhythm is irregular. . 15:50 General: Appears in no apparent distress, comfortable, Behavior is appropriate for age, kc3 cooperative. Pain: Denies pain. Neurological: Level of Consciousness is awake, alert, obeys commands, Oriented to person, place, time, Reports weakness. Cardiovascular: Rhythm is irregular. Respiratory: Airway is patent Respiratory effort is even, unlabored, Reports cough that is productive. Derm: see above note. Musculoskeletal: Circulation, motion, and sensation intact. Vital Signs: 10:21 BP 129 / 72 (auto/); hs1 10:23 Pulse 104 MON; Resp 18; Pulse Ox 95% ; Weight 58.97 kg; Height 5 ft. 8 in. (172.72 cm); hs1 Pain 0/10; 10:27 Temp 99.3(TE); hs1 10:51 BP 148 / 61 (auto/); kc3 10:51 Pulse 102 MON; Pulse Ox 94% ; kc3 11:21 BP 129 / 66 (auto/); kc3 11:21 Pulse 104 MON; Pulse Ox 95% ; kc3 11:51 BP 124 / 59 (auto/); kc3 11:51 Pulse 102 MON; Pulse Ox 95% ; kc3 12:21 BP 125 / 61 (auto/); kc3 12:21 Pulse 104 MON; Pulse Ox 94% ; kc3 12:50 Pulse 96 MON; Pulse Ox 94% ; kc3 12:51 BP 109 / 61 (auto/); kc3 13:21 BP 118 / 58 (auto/); kc3 13:21 Pulse 98 MON; Pulse Ox 97% ; kc3 13:51 BP 125 / 64 (auto/); kc3 13:51 Pulse 98 MON; Pulse Ox 96% ; kc3 14:21 BP 106 / 72 (auto/); kc3 14:21 Pulse 100 MON; Pulse Ox 96% ; kc3 14:51 BP 108 / 57 (auto/); kc3 14:51 Pulse 98 MON; Pulse Ox 95% ; kc3 15:43 BP 124 / 60 LA Sitting (auto/reg); Pulse 70; Resp 20; Temp 99.9(TE); Pulse Ox 96% on bnb R/A; Pain 0/10; 10:23 Body Mass Index 19.77 (58.97 kg, 172.72 cm) hs1 Vitals: 10:27 Glucose Measurement D-Stick in Triage- Normal. Log In Time N/A - ambulance arrival. hs1 ED Course: 10:13 Patient visited by Deisy Hobbs, Meter Reader Inspector. deg 10:13 Patient moved to Waiting deg 10:14 Lupe Butler,RN is Primary Nurse. deg 10:14 Patient visited by Ignacia Muniz RN. hs1 10:14 Patient moved to 5 deg 10:18 Triage Initiated hs1 10:22 Tahira Hi MD is Attending Physician. ml 10:22 Patient visited by Tahira Hi MD. ml 11:02 -Arterial Blood Gas Sent. kjn 11:10 Patient visited by Mic Stanley. jml1 11:10 EKG done. (by ED staff). Reviewed by Tahira Hi MD. jml1 11:30 Accessed using # 22 Carlos needle sterile technique, per hospital protocol. Inf[employer] kc3 in patient's anterior aspect of right upper chest. Clean & dry. Dressing intact. Good blood return. Flushes easily. 11:35 Phosphorous Level Sent. kc3 11:35 Magnesium Level Sent. kc3 11:35 Lactic Acid (Morton tube on ice) Sent. kc3 11:35 Troponin Sent. kc3 11:35 CIP Sent. kc3 11:35 -Blood Culture Sent. kc3 11:35 Lipase Sent. kc3 11:35 Amylase Sent. kc3 11:48 Patient visited by Lupe Butler RN. kc3 12:00 Chest, 1 View Returned. EDMS 12:31 Patient visited by Lupe Butler RN. kc3 12:31 DIFFERENTIAL NO CHARGE Sent. kc3 12:39 CT Head Without Contrast Returned. EDMS 12:47 The patient / caregiver is instructed regarding the plan of care and ED course. kc3 13:00 Patient visited by Lupe Butler RN. kc3 13:03 Michael Diaz is Hospitalizing Provider. ml 13:10 [facility] Payment Agreement was scanned into [employer] and attached to record. jp5 13:59 PCR was scanned into [employer] and attached to record. gb 15:07 Inserted saline lock: 20 gauge in left antecubital area The patient tolerated the kc3 procedure well. 15:10 Patient visited by Lupe Butler RN. kc3 15:44 Patient visited by Louann Barrera PCA. bnb 15:51 No procedures done that require assistance. kc3 Administered Medications: 11:37 Drug: Albuterol 5 mg [albuterol sulfate 2.5 mg/0.5 mL solution for nebulization (1 mL)] kjn Route: Nebulizer; 11:37 Drug: Albuterol-Ipratropium 3 ml [ipratropium-albuterol 0.5 mg-3 mg(2.5 mg base)/3 mL kjn nebulization soln (3 mL)] Route: Inhalation; RT: 11:02 ABG's drawn from right brachial artery specimen sent pt. tolerated well. Initial Med kjn Neb Given as ordered. Respiratory: Breath sounds with crackles bilaterally. Order Results: Lab Order: CBC with Diff; SPEC'M 07/10/16 11:30 Test: WHITE BLOOD COUNT; Value: 8.5; Range: 4.0-10.0; Units: K/mm3; Status: F Test: RED BLOOD COUNT; Value: 2.20; Range: 4.30-6.10; Abnormal: Below low normal; Units: M/mm3; Status: F Test: HEMOGLOBIN; Value: 7.1; Range: 14.0-18.0; Abnormal: Below low normal; Units: g/dl; Status: F Test: HEMATOCRIT; Value: 20.9; Range: 42.0-52.0; Abnormal: Below low normal; Units: %; Status: F Test: MEAN CORPUSCULAR VOLUME; Value: 95.2; Range: 80.0-96.0; Units: fl; Status: F Test: MEAN CORPUSCULAR HEMOGLOBIN; Value: 32.4; Range: 27.0-33.0; Units: pg; Status: F Test: MEAN CORPUSCULAR HGB CONC; Value: 34.1; Range: 32.0-36.5; Units: g/dl; Status: F Test: RED CELL DISTRIBUTION WIDTH; Value: 20.5; Range: 11.5-14.5; Abnormal: Above high normal; Units: %; Status: F Test: PLATELET COUNT, AUTOMATED; Value: 26; Range: 150-450; Abnormal: Critical Low; Units: k/mm3; Status: F Test: NEUTROPHILS; Value: 67; Range: 35-75; Units: %; Status: F Test: LYMPHOCYTES; Value: 8; Range: 16-52; Abnormal: Below low normal; Units: %; Status: F Test: MONOCYTES; Value: 1; Range: 0-8; Units: %; Status: F Test: BLAST CELLS; Value: 21; Range: 0-0; Abnormal: Above high normal; Units: %; Status: F Test: ATYPICAL LYMPH; Value: 3; Range: 0-5; Units: %; Status: F Test: POLYCHROMASIA; Value: 1+; Status: F Test: ANISOCYTOSIS; Value: 2+; Status: F Test: MACROCYTOSIS; Value: 1+; Status: F Test: SMUDGE CELLS; Value: 1+; Status: F Lab Order: MED Profile; SPEC07/10/16 11:30 Test: GLUCOSE, FASTING; Value: 114; Range: 80-110; Abnormal: Above high normal; Units: MG/DL; Status: F Test: BLOOD UREA NITROGEN; Value: 16; Range: 7-18; Units: MG/DL; Status: F Test: CREATININE FOR GFR; Value: 1.32; Range: 0.70-1.30; Abnormal: Above high normal; Units: MG/DL; Status: F Test: GLOMERULAR FILTRATION RATE; Value: 58.7; Range: >49; Status: F Test: SODIUM LEVEL; Value: 129; Range: 136-145; Abnormal: Below low normal; Units: MEQ/L; Status: F Test: POTASSIUM SERUM; Value: 3.7; Range: 3.5-5.1; Units: MEQ/L; Status: F Test: CHLORIDE LEVEL; Value: 92; Range: 98-107; Abnormal: Below low normal; Units: MEQ/L; Status: F Test: CARBON DIOXIDE LEVEL; Value: 23; Range: 21-32; Units: MEQ/L; Status: F Test: ANION GAP; Value: 14; Range: 8-16; Units: MEQ/L; Status: F Test: CALCIUM LEVEL; Value: 8.3; Range: 8.8-10.2; Abnormal: Below low normal; Units: MG/DL; Status: F Test Note: ; Units are mL/min/1.73 m2 Chronic Kidney Disease Staging per NKF: Stage I & II GFR >=60 Normal to Mildly Decreased Stage III GFR 30-59 Moderately Decreased Stage IV GFR 15-29 Severely Decreased Stage V GFR <15 Very Little GFR Left ESRD GFR <15 on BAND PRESSER Lab Order: Liver Profile; SPEC07/10/16 11:30 Test: AST/SGOT; Value: 20; Range: 15-37; Units: U/L; Status: F Test: ALT/SGPT; Value: 22; Range: 12-78; Units: U/L; Status: F Test: ALKALINE PHOSPHATASE; Value: 209; Range: 45-117; Abnormal: Above high normal; Units: U/L; Status: F Test: BILIRUBIN,TOTAL; Value: 0.4; Range: 0.2-1.0; Units: MG/DL; Status: F Test: BILIRUBIN,DIRECT; Value: 0.1; Range: 0.0-0.2; Units: MG/DL; Status: F Test: TOTAL PROTEIN; Value: 6.8; Range: 6.4-8.2; Units: GM/DL; Status: F Test: ALBUMIN; Value: 3.2; Range: 3.2-5.2; Units: GM/DL; Status: F Test: ALBUMIN/GLOBULIN RATIO; Value: 0.89; Range: 1.00-1.93; Abnormal: Below low normal; Status: F Lab Order: Amylase; [facility] 07/10/16 11:30 Test: AMYLASE; Value: 43; Range: 25-115; Units: U/L; Status: F Lab Order: Lipase; [facility] 07/10/16 11:30 Test: LIPASE; Value: 118; Range: 73-393; Units: U/L; Status: F Lab Order: CIP; [facility] 07/10/16 11:30 Test: CPK CREATINE PHOSPHOKINASE; Value: 103; Range: 39-308; Units: U/L; Status: F Test: CK-MB VALUE MASS; Value: 1.3; Range: 0.0-3.6; Units: NG/ML; Status: F Test: MB/CK RELATIVE INDEX; Value: 1.26; Range: < OR =4; Status: F Test Note: ; DIAGNOSIS CRITERIA MMB ng/ml Relative Index (RI) NON-AMI < or = 5 N/A [place] > 5 < or = 4 AMI > 5 > 4 Lab Order: Troponin; [facility] 07/10/16 11:30 Test: TROPONIN I; Value: < 0.02; Range: < 0.10; Units: NG/ML; Status: F Test Note: ; Troponin I Reference Interval for [place] LOCI: 99th Percentile= 0.00-0.045 ng/ml Risk Stratification: <= 0.10 ng/ml Decreased Risk for Adverse Clinical Events. 0.10-1.50 ng/ml Increased Risk for Adverse Clinical Events. Evaluation of additional criterion and/or repeat testing in 2-6 hours is suggested to rule out myocardial damage. >= 1.50 ng/ml Indicative of Myocardial Injury. Lab Order: Lactic Acid (Morton tube on ice); 07/10/16 11:30 Test: LACTIC ACID SEPSIS PROTOCOL; Value: 1.1; Range: 0.4-2.0; Units: MMOL/L; Status: F Lab Order: -Arterial Blood Gas; 07/10/16 11:01 Test: ABG pH (ARTERIAL); Value: 7.540; Range: 7.350-7.450; Abnormal: Above high normal; Units: UNITS; Status: F Test: ABG PARTIAL PRESSURE CO2; Value: 28.4; Range: 35.0-45.0; Abnormal: Below low normal; Units: mmHg; Status: F Test: ABG PARTIAL PRESSURE O2; Value: 87.1; Range: 75.0-100.0; Units: mmHg; Status: F Test: ABG TOTAL CO2; Value: 24.6; Range: 23.0-31.0; Units: MEQ/L; Status: F Test: ABG HCO3; Value: 23.7; Range: 22.0-26.0; Units: MEQ/L; Status: F Test: ABG BASE EXCESS; Value: 1.4; Range: -2.0-2.0; Status: F Test: ABG STANDARD HCO3; Value: 25.7; Range: 22.0-26.0; Units: MEQ/L; Status: F Test: ABG O2 SATURATION; Value: 97.1; Range: 95.0-99.0; Units: %; Status: F Test: ABG DEVICE; Value: NASAL OSIEL; Status: F Lab Order: Magnesium Level; 07/10/16 11:30 Test: MAGNESIUM LEVEL; Value: 2.1; Range: 1.8-2.4; Units: MG/DL; Status: F Lab Order: Phosphorous Level; 07/10/16 11:30 Test: PHOSPHORUS LEVEL; Value: 3.5; Range: 2.5-4.9; Units: MG/DL; Status: F Lab Order: PLATELET ESTIMATE; 07/10/16 11:30 Test: PLATELET ESTIMATE; Value: MARKED DECREASE; Range: NORMAL; Status: F Lab Order: TYPE & SCREEN; 07/10/16 11:30 Test: AB SCREEN (INDIRECT MAX)VIS; Value: NEGATIVE; Status: F Lab Order: Fingerstick Blood Sugar; SPEC'M 07/10/16 10:21 Test: BEDSIDE GLUCOSE; Value: 107; Range: 80-115; Units: MG/DL; Status: F Test Note: ; RN Notified Doctor Notified Radiology Order: Chest, 1 View Test: Chest, 1 View REASON FOR EXAMINATION: Cough; AP PORTABLE CHEST: 07/10/2016.; ; Comparison: 04/03/2016, 10/17/2005 chest x-ray, CT chest 04/21/2016.; ; Clinical history: Cough.; ; Findings: There is an indwelling port catheter via the right jugular route with; tip in SVC unchanged. Lungs are hyperinflated. Linear atelectatic change left; CP angle and left lateral base is resolved from previous study. There is basilar; and other interstitial fibrotic change, mild but diffuse. There is right; infrahilar subsegmental atelectatic of the patchy density there. No dense; consolidation. There is no gross cardiomegaly allowing for portable technique.; The aorta is normal. Airway intact. No nodule, acute infiltrate, gross effusion; or mass. No widening of the mediastinum. Bones intact.; ; Impression:; 1. Underlying interstitial fibrosis without gross infiltrate, nodule, effusion; or edema. Some subtle right infrahilar patchy atelectasis suggested. The linear; atelectatic changes in the left CP angle and left lateral base are resolved since; the March 2016 study.; ; ; ; ; ; ; Unreviewed; Radiology Order: CT Head Without Contrast Test: CT Head Without Contrast REASON FOR EXAMINATION: weakness; CT HEAD WITHOUT CONTRAST:; ; HISTORY: Weakness.; ; Areas of decreased attention are present in the periventricular white matter.; This represents small vessel ischemic disease. There is no intraparenchymal; hemorrhage, mass or midline shift. The ventricular system and cortical sulci are; dilated consistent with mild volume loss. There is no extracerebral collection.; Mucosal thickening is present in the ethmoid, sphenoid and frontal sinuses, and; left mastoid air cells.; ; IMPRESSION:; ; 1. Small vessel ischemic disease.; ; 2. Mild volume loss.; ; ; Signed by; Dereje Elkins MD 07/10/2016 12:17 P; Outcome: 12:53 CT Study completed. kc3 13:03 Decision to Hospitalize by Provider. 15:37 CT Study completed. 3 15:51 Discharge Assessment: patient administered narcotics - no. The following High Risk kc3 Discharge criteria are identified: None. Admitted to PCU accompanied by nurse, family with patient, via stretcher, with oxygen, on monitor, with chart. Condition: stable. Admission hand-off: Report Faxed. Property :Personal belongings accompany Pt. 15:53 Patient left the ED. kc3 Signatures: Dispatcher [employer] EDMS Tahira Hi MD MD ml Murray, Denise, Meter Reader Inspector Unit deg Radha Jovel, Reg Reg Ignacia Hernandez, RN RN hs1 Mic Stanley jml1 Ester Berry Jennalee jp5 Lupe Butler RN RN kc3 Louann Barrera, TRUCK GREASER TRUCK GREASER bnb Corrections: (The following items were deleted from the chart) 12:51 12:45 Neurological: Level of Consciousness is awake, alert, obeys commands, Oriented to kc3 person, place, time, kc3 MTDD
--- NOTE | 2016-07-10 16:34 | REP ---
CT pulmonary angiogram: With IV contrast. History: Hypoxia. Comparison studies: April 21, [address] Contrast dose: 75 cc's of Isovue [address] technique: Helical scanning is acquired and overlapping 1.5 mm and contiguous 3 mm axial images are reformatted. In addition, a 3-D work station is deployed to generate thick slab maximum intensity projection images in sagittal and coronal imaging projections. CT pulmonary angiographic findings: There is good opacification of the pulmonary arterial tree and there is no CT evidence of pulmonary embolism. There is left coronary artery vascular calcification. Thoracic aorta enhances homogeneously and there is no evidence of aneurysm or dissection. Maximum intensity projection images show no vessel cutoff or filling defect in the pulmonary arterial tree. There is subsegmental atelectatic change in the left lower lobe and lingula at the left base. There is an area of discoid atelectasis in the left upper lobe more superiorly as well. No pulmonary mass lesion or definite infiltrate is seen. No pleural or pericardial effusion is seen. No mediastinal or hilar lymphadenopathy is observed. No adrenal lesion is seen. There is a right-sided Gguuii-Y-Iaei catheter. No bony destructive lesion is seen. Impression: No CT evidence of pulmonary embolism. Patchy areas of discoid atelectasis in the left upper lobe, lingula, and left lower lobe. Left coronary artery vascular calcification again noted. No other significant abnormality. Signed by Franklin Montero MD 07/10/2016 04:52 P
[2016-07-10] MEDS ORDERED: PIPERACILLIN/TAZOBACTAM SOD 3.375 GM in D5W MINI-BAG PLUS 50 ML IV SCH (17:00)
--- NOTE | 2016-07-10 18:18 | EDDOCDS ---
Physician Documentation [facility] Name: Jacob Almaguer Age: 60 yrs Sex: Male : 1955 Arrival Date: 07/10/2016 Time: 10:12 Bed 5 Private MD: Disposition: 07/10 13:04 Critical Care:. ml Disposition: 07/10/16 13:03 Hospitalization ordered by Michael Diaz for Inpatient Admission. 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 - Bed requested for ICU. - Status is Inpatient Admission. kcs - Condition is Stable. - Problem is new. - Symptoms are unchanged. Historical: - Allergies: no known allergies; - Home Meds: 1. montelukast 10 mg oral tab 1 tab once daily 2. pantoprazole 40 mg oral TbEC 1 tab once daily 3. sirolimus 1 mg oral tab once daily 4. tamsulosin 0.4 mg oral cp24 1 cap once daily 5. triamcinolone 0.1% twice a day cream 6. acyclovir 200 mg Oral cap 2 caps 2 times per day 7. azithromycin 250 mg Oral tab 3 times a week 8. Chlorhexidine 0.12% solution 15mLs by mouth 2 times a day, swish and spit out. 9. fluconazole 200 mg Oral tab 1 tab once daily 10. Magnesium 1 tab twice a day - PMHx: Leukemia; Umbilical hernia; Bone marrow transplant; Stem cell transplant; - PSHx: fracture repair to right thumb; - Social history: Smoking status: Patient states was never smoker of tobacco. No barriers to communication noted, The patient speaks fluent Niuean, Speaks appropriately for age. - Family history: Not pertinent. - : The pt / caregiver states he / she is not on anticoagulants. Home medication list is obtained from the patient. - Exposure Risk Screening:: None identified. Vital Signs: 10:21 BP 129 / 72 (auto/); hs1 10:23 Pulse 104 MON; Resp 18; Pulse Ox 95% ; Weight 58.97 kg / 130.01 lbs; Height 5 ft. 8 in. hs1 (172.72 cm); Pain 0/10; 10:27 Temp 99.3(TE); hs1 10:51 BP 148 / 61 (auto/); kc3 10:51 Pulse 102 MON; Pulse Ox 94% ; kc3 11:21 BP 129 / 66 (auto/); kc3 11:21 Pulse 104 MON; Pulse Ox 95% ; kc3 11:51 BP 124 / 59 (auto/); kc3 11:51 Pulse 102 MON; Pulse Ox 95% ; kc3 12:21 BP 125 / 61 (auto/); kc3 12:21 Pulse 104 MON; Pulse Ox 94% ; kc3 12:50 Pulse 96 MON; Pulse Ox 94% ; kc3 12:51 BP 109 / 61 (auto/); kc3 13:21 BP 118 / 58 (auto/); kc3 13:21 Pulse 98 MON; Pulse Ox 97% ; kc3 13:51 BP 125 / 64 (auto/); kc3 13:51 Pulse 98 MON; Pulse Ox 96% ; kc3 14:21 BP 106 / 72 (auto/); kc3 14:21 Pulse 100 MON; Pulse Ox 96% ; kc3 14:51 BP 108 / 57 (auto/); kc3 14:51 Pulse 98 MON; Pulse Ox 95% ; kc3 15:21 BP 113 / 58 (auto/); kc3 15:21 Pulse 98 MON; Pulse Ox 98% ; kc3 15:41 BP 124 / 60 (auto/); kc3 15:41 Pulse 100 MON; Pulse Ox 97% ; kc3 15:43 BP 124 / 60 LA Sitting (auto/reg); Pulse 70; Resp 20; Temp 99.9(TE); Pulse Ox 96% on bnb R/A; Pain 0/10; 16:40 BP 113 / 66 (auto/); kc3 16:41 Pulse 96 MON; Pulse Ox 98% ; kc3 17:10 BP 117 / 56 (auto/); kc3 17:11 Pulse 94 MON; Pulse Ox 98% ; kc3 17:34 Pulse 96 MON; Pulse Ox 99% ; kc3 17:40 BP 127 / 60 (auto/); kc3 17:41 Pulse 96 MON; kc3 18:12 BP 131 / 60; Pulse 98; Resp 18; Temp 99.3(TE); Pulse Ox 97% on 2 lpm NC; Pain 0/10; kc3 10:23 Body Mass Index 19.77 (58.97 kg, 172.72 cm) hs1 MDM: 10:42 IV Saline Lock ordered. ml 10:42 -Blood Culture (Adults Only), peripheral from different site, or from device/port/PICC ml etc. if present ordered. 10:42 Albuterol 5 mg Nebulizer once ordered. ml 10:42 Albuterol-Ipratropium 3 ml Inhalation once ordered. ml 10:42 Call Respiratory ordered. ml 10:42 Call Respiratory ordered. ml 10:42 CBC with Diff Ordered. EDMS 10:42 MED Profile Ordered. EDMS 10:43 Liver Profile Ordered. EDMS 10:43 Amylase Ordered. EDMS 10:43 Lipase Ordered. EDMS 10:43 -Blood Culture Ordered. EDMS 10:43 CIP Ordered. EDMS 10:43 Troponin Ordered. EDMS 10:43 Lactic Acid (Morton tube on ice) Ordered. EDMS 10:43 -Arterial Blood Gas Ordered. EDMS 10:43 Magnesium Level Ordered. EDMS 10:43 Phosphorous Level Ordered. EDMS 10:43 ECG WITH READING ER PHYS+CARDIAG ordered. EDMS 10:44 Chest, 1 View Ordered. EDMS 10:44 CT Head Without Contrast Ordered. EDMS 10:46 BED REQUEST+ADM ordered. EDMS 11:00 Call Respiratory complete. deg 11:03 -Blood Culture (Adults Only), peripheral from different site, or from device/port/PICC deg etc. if present complete. 11:04 BLOOD CULTURES Ordered. EDMS 11:51 DIFFERENTIAL NO CHARGE Ordered. EDMS 11:51 PLATELET ESTIMATE Ordered. EDMS 11:53 Call Respiratory complete. kc3 11:57 CBC with Diff Reviewed. ml 11:57 -Arterial Blood Gas Reviewed. ml 12:00 TYPE & SCREEN Ordered. EDMS 12:09 Fingerstick Blood Sugar Ordered. EDMS 12:39 CBC with Diff Reviewed. ml 12:39 MED Profile Reviewed. ml 12:39 Liver Profile Reviewed. ml 12:39 Amylase Reviewed. ml 12:39 Lipase Reviewed. ml 12:39 CIP Reviewed. ml 12:39 Troponin Reviewed. ml 12:39 Lactic Acid (Morton tube on ice) Reviewed. ml 12:39 Magnesium Level Reviewed. ml 12:39 Phosphorous Level Reviewed. ml 12:39 PLATELET ESTIMATE Reviewed. ml 12:39 Fingerstick Blood Sugar Reviewed. ml 12:39 Chest, 1 View Reviewed. ml 12:39 CT Head Without Contrast Reviewed. ml 12:59 CT Chest Angio R/O PE Ordered. EDMS 13:10 [facility] Payment Agreement was scanned into [employer] and attached to record. jp5 13:10 Financial registration complete. jp5 13:32 URINALYSIS Ordered. EDMS 13:32 URINE CULTURE Ordered. EDMS 13:34 Admission / Observation Status ordered. EDMS 13:34 2 GRAM SODIUM DIET ordered. EDMS 13:53 OLIGOCLONAL BANDS, CSF Ordered. EDMS 13:53 IMMUNOGLOBULIN G CSF Ordered. EDMS 13:53 CSF GLUCOSE Ordered. EDMS 13:53 CSF T PROTEIN Ordered. EDMS 13:53 CSF BACTERIAL ANTIGENS Ordered. EDMS 13:53 CELL COUNT/DIFF CSF Ordered. EDMS 13:53 CSF CULTURE AND GRAM STAIN Ordered. EDMS 13:54 VIRAL CULTURE Ordered. EDMS 13:54 FUNGUS SMEAR & CULTURE Ordered. EDMS 13:54 NON ATHLETIC COORDINATOR/CYTOLOGY REQ FOR SERVI Ordered. EDMS 13:54 NON ATHLETIC COORDINATOR/CYTOLOGY REQ FOR SERVI Ordered. EDMS 13:56 IRRADIAT LEUKOREDUC PACK CELLS Ordered. EDMS 13:59 PCR was scanned into [employer] and attached to record. gb 14:48 SPUTUM CULTURE AND GRAM STAIN Ordered. EDMS 15:10 FLUORO GUID FOR NEEDLE PLACEMT Ordered. EDMS 17:03 Written Provider Order was scanned into [employer] and attached to record. deg 17:49 IRRADIATED PHERESIS PLATELETS Ordered. EDMS Administered Medications: 11:37 Drug: Albuterol 5 mg [albuterol sulfate 2.5 mg/0.5 mL solution for nebulization (1 mL)] kjn Route: Nebulizer; 11:37 Drug: Albuterol-Ipratropium 3 ml [ipratropium-albuterol 0.5 mg-3 mg(2.5 mg base)/3 mL kjn nebulization soln (3 mL)] Route: Inhalation; Critical Care Time: 13:04 Critical care time: Bedside Care: 90 minutes, Consultation: 10 minutes. Total time: 100 ml minutes Signatures: Dispatcher [employer] EDMS Tahira Hi MD MD ml Tess Laureano, RN RN kcs Deisy Hobbs, Production Administrator Unit deg Radha Jovel, Reg Reg Ignacia Hernandez RN RN hs1 Juani Benedict jp5 Lupe Butler,RN RN kc3 Carlene Armstrong RN [facility] [place] JamalEster amor The chart was reviewed and I authenticate all verbal orders and agree with the evaluation and treatment provided.Corrections: (The following items were deleted from the chart) 13:52 13:34 TYPE & SCREEN ordered. EDMS EDMS 13:55 11:59 PACKED CELLS+BBK ordered. EDMS EDMS 13:55 13:52 IRRADIAT LEUKOREDUC PACK CELLS ordered. EDMS EDMS 13:56 13:52 TYPE & SCREEN ordered. EDMS EDMS 15:49 13:51 FLUORO GUID FOR NEEDLE PLACEMT ordered. EDMS EDMS 18:12 15:02 PHERESIS PLATELETS ordered. EDMS EDMS Attachments: 13:10 [facility] Payment Agreement jp5 17:03 Written Provider Order deg MTDD
--- NOTE | 2016-07-10 18:18 | EDDOCDS ---
Nurse's Notes 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 Patient states coughing up yellow sputum for the past couple of weeks. The last date and time the patient was known to be well was was at 10:17 on July 10, 2016. No acute neurological deficit is noted. Pre-hospital glucose is not applicable to this patient. Adult Sepsis Screening: The patient does not have new or worsening altered mentation. Patient's respiratory rate is less than 22. Systolic blood pressure is greater than 100. Patient has a qSOFA score of 0- Negative Sepsis Screen. Suicide/Homicide risk assessment- the patient denies having any suicidal and/or homicidal ideations and does not present with any other emotional, behavioral or mental health complaints. 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 Transition of care: patient was not received from another setting of care. 10:14 Acuity: GIGI Level 3 hs1 10:14 Method Of Arrival: Ambulance hs1 Triage Assessment: 10:22 The onset of the patients symptoms was more than three hours ago. General: Appears in hs1 no apparent distress, Behavior is appropriate for age, cooperative. Pain: Denies pain. Neurological: Level of Consciousness is awake, alert, obeys commands, Reports progressive weakness -daughter and states that he has progressed from being able to walk to now walking with walker to no not able to walk. Patient also states increased neuropathy - tingling in hands and feet. Patient having difficulty moving feet. . Cardiovascular: Rhythm is sinus rhythm with unifocal PVCs. Derm: Skin is dry, very dry. Skin is normal. 12:53 HIV screening NA for this visit Offered previously. kc3 Historical: - Allergies: no known allergies; - Home Meds: 1. montelukast 10 mg oral tab 1 tab once daily 2. pantoprazole 40 mg oral TbEC 1 tab once daily 3. sirolimus 1 mg oral tab once daily 4. tamsulosin 0.4 mg oral cp24 1 cap once daily 5. triamcinolone 0.1% twice a day cream 6. acyclovir 200 mg Oral cap 2 caps 2 times per day 7. azithromycin 250 mg Oral tab 3 times a week 8. Chlorhexidine 0.12% solution 15mLs by mouth 2 times a day, swish and spit out. 9. fluconazole 200 mg Oral tab 1 tab once daily 10. Magnesium 1 tab twice a day - PMHx: Leukemia; Umbilical hernia; Bone marrow transplant; Stem cell transplant; - PSHx: fracture repair to right thumb; - Social history: Smoking status: Patient states was never smoker of tobacco. No barriers to communication noted, The patient speaks fluent [place] Citizen, Speaks appropriately for age. - Family history: Not pertinent. - : The pt / caregiver states he / she is not on anticoagulants. Home medication list is obtained from the patient. - Exposure Risk Screening:: None identified. Screenin:47 Screening information is obtained from the patient. Fall risk: At risk due to weakness. kc3 Assistance ADL's: requires no assistance with activities of daily living. Abuse/DV Screen: The patient / caregiver reports he/she is: not in a situation that causes fear, pain or injury. Nutritional screening: No deficits noted. Advance Directives: Currently, there is a health care proxy, Christa Almaguer, . There is no active DNR order. There is a living will, but a copy is not available at this time. home support is adequate. Assessment: 10:30 General: Appears in no apparent distress, comfortable, Behavior is appropriate for age, kc3 cooperative. Pain: Denies pain. Neurological: Level of Consciousness is awake, alert, obeys commands, Oriented to person, place, time. 11:00 General: Appears in no apparent distress, comfortable, Behavior is appropriate for age, kc3 cooperative. Pain: Denies pain. Neurological: Level of Consciousness is awake, alert, obeys commands, Oriented to person, place, time. Cardiovascular: Rhythm is sinus tachycardia. Respiratory: Airway is patent Respiratory effort is even, unlabored, Breath sounds are coarse bilaterally. Reports cough that is productive. Derm: Skin is fragile, Skin is dry, Skin is normal. Musculoskeletal: Circulation, motion, and sensation intact. 12:00 General: Appears in no apparent distress, comfortable, Behavior is appropriate for age, kc3 cooperative, Pt resting on stretcher with no complaints at this time. Per Dr. Morton, pt allowed to take home transplant meds. Family at bedside. . Pain: Denies pain. Neurological: Level of Consciousness is awake, alert, obeys commands, Oriented to person, place, time. Cardiovascular: Rhythm is irregular. Respiratory: Airway is patent Respiratory effort is even, unlabored. Derm: see above note. 12:45 General: Appears in no apparent distress, comfortable, Behavior is appropriate for age, kc3 cooperative, Pt assisted to comfortable position in bed. Family at bedside. . Pain: Denies pain. Neurological: Level of Consciousness is awake, alert, obeys commands, Oriented to person, place, time, Reports weakness. Cardiovascular: Rhythm is irregular. Respiratory: Airway is patent Respiratory effort is even, unlabored. Derm: See above note. Musculoskeletal: Circulation, motion, and sensation intact. 13:30 General: Appears in no apparent distress, comfortable, Behavior is appropriate for age, kc3 cooperative, Pt resting on stretcher with family at bedside with no complaints at this time. . Pain: Denies pain. Neurological: Level of Consciousness is awake, alert, obeys commands. Cardiovascular: Rhythm is irregular. Respiratory: Airway is patent Respiratory effort is even, unlabored. Derm: see above note. 14:40 General: Appears in no apparent distress, comfortable, Pt resting on stretcher appears kc3 to be sleeping. No complaints reported. Family at bedside. Pt updated on plan of care. Respirations even and unlabored. Pt remains on oxygen while sleeping. Cardiac rhythm is irregular. . 15:50 General: Appears in no apparent distress, comfortable, Behavior is appropriate for age, kc3 cooperative. Pain: Denies pain. Neurological: Level of Consciousness is awake, alert, obeys commands, Oriented to person, place, time, Reports weakness. Cardiovascular: Rhythm is irregular. Respiratory: Airway is patent Respiratory effort is even, unlabored, Reports cough that is productive. Derm: see above note. Musculoskeletal: Circulation, motion, and sensation intact. 16:35 General: Appears in no apparent distress, comfortable, Behavior is appropriate for age, kc3 cooperative. Pain: Denies pain. Neurological: Level of Consciousness is awake, alert, obeys commands, Oriented to person, place, time, Reports weakness. Cardiovascular: Rhythm is irregular. Respiratory: Airway is patent Respiratory effort is even, unlabored. Derm: Skin is normal. 17:31 General: Appears in no apparent distress, comfortable, Behavior is appropriate for age, kc3 cooperative. Pain: Denies pain. Neurological: Level of Consciousness is awake, alert, obeys commands, Oriented to person, place, time. Cardiovascular: Rhythm is irregular. Respiratory: Airway is patent Respiratory effort is even, unlabored. Derm: Skin is normal. 18:04 General: Appears in no apparent distress, comfortable, Behavior is appropriate for age, kc3 cooperative, Pt resting on stretcher. No complaints at this time. Family at bedside. . Pain: Denies pain. Neurological: Level of Consciousness is awake, alert, obeys commands, Oriented to person, place, time. Neurological: Reports weakness. Cardiovascular: Rhythm is irregular. Respiratory: Airway is patent Respiratory effort is even, unlabored. Derm: see previous note. Vital Signs: 10:21 BP 129 / 72 (auto/); hs1 10:23 Pulse 104 MON; Resp 18; Pulse Ox 95% ; Weight 58.97 kg; Height 5 ft. 8 in. (172.72 cm); hs1 Pain 0/10; 10:27 Temp 99.3(TE); hs1 10:51 BP 148 / 61 (auto/); kc3 10:51 Pulse 102 MON; Pulse Ox 94% ; kc3 11:21 BP 129 / 66 (auto/); kc3 11:21 Pulse 104 MON; Pulse Ox 95% ; kc3 11:51 BP 124 / 59 (auto/); kc3 11:51 Pulse 102 MON; Pulse Ox 95% ; kc3 12:21 BP 125 / 61 (auto/); kc3 12:21 Pulse 104 MON; Pulse Ox 94% ; kc3 12:50 Pulse 96 MON; Pulse Ox 94% ; kc3 12:51 BP 109 / 61 (auto/); kc3 13:21 BP 118 / 58 (auto/); kc3 13:21 Pulse 98 MON; Pulse Ox 97% ; kc3 13:51 BP 125 / 64 (auto/); kc3 13:51 Pulse 98 MON; Pulse Ox 96% ; kc3 14:21 BP 106 / 72 (auto/); kc3 14:21 Pulse 100 MON; Pulse Ox 96% ; kc3 14:51 BP 108 / 57 (auto/); kc3 14:51 Pulse 98 MON; Pulse Ox 95% ; kc3 15:21 BP 113 / 58 (auto/); kc3 15:21 Pulse 98 MON; Pulse Ox 98% ; kc3 15:41 BP 124 / 60 (auto/); kc3 15:41 Pulse 100 MON; Pulse Ox 97% ; kc3 15:43 BP 124 / 60 LA Sitting (auto/reg); Pulse 70; Resp 20; Temp 99.9(TE); Pulse Ox 96% on bnb R/A; Pain 0/10; 16:40 BP 113 / 66 (auto/); kc3 16:41 Pulse 96 MON; Pulse Ox 98% ; kc3 17:10 BP 117 / 56 (auto/); kc3 17:11 Pulse 94 MON; Pulse Ox 98% ; kc3 17:34 Pulse 96 MON; Pulse Ox 99% ; kc3 17:40 BP 127 / 60 (auto/); kc3 17:41 Pulse 96 MON; kc3 18:12 BP 131 / 60; Pulse 98; Resp 18; Temp 99.3(TE); Pulse Ox 97% on 2 lpm NC; Pain 0/10; kc3 10:23 Body Mass Index 19.77 (58.97 kg, 172.72 cm) hs1 Vitals: 10:27 Glucose Measurement D-Stick in Triage- Normal. Log In Time N/A - ambulance arrival. hs1 ED Course: 10:13 Patient visited by Deisy Hobbs, Flux Tube Attendant. deg 10:13 Patient moved to Waiting deg 10:14 Lupe Butler,RN is Primary Nurse. deg 10:14 Patient visited by Ignacia Muniz, JM. hs1 10:14 Patient moved to 5 deg 10:18 Triage Initiated hs1 10:22 Tahira Hi MD is Attending Physician. ml 10:22 Patient visited by Tahira Hi MD. ml 11:02 -Arterial Blood Gas Sent. kjn 11:10 Patient visited by Mic Stanley. jml1 11:10 EKG done. (by ED staff). Reviewed by Tahira Hi MD. jml1 11:30 Accessed using # 22 Carlos needle sterile technique, per hospital protocol. [employer] kc3 in patient's anterior aspect of right upper chest. Clean & dry. Dressing intact. Good blood return. Flushes easily. 11:35 Phosphorous Level Sent. kc3 11:35 Magnesium Level Sent. kc3 11:35 Lactic Acid (Morton tube on ice) Sent. kc3 11:35 Troponin Sent. kc3 11:35 CIP Sent. kc3 11:35 -Blood Culture Sent. kc3 11:35 Lipase Sent. kc3 11:35 Amylase Sent. kc3 11:48 Patient visited by Lupe Butler RN. kc3 12:00 Chest, 1 View Returned. EDMS 12:31 Patient visited by Lupe Butler RN. kc3 12:31 DIFFERENTIAL NO CHARGE Sent. kc3 12:39 CT Head Without Contrast Returned. EDMS 12:47 The patient / caregiver is instructed regarding the plan of care and ED course. kc3 13:00 Patient visited by Lupe Butler RN. kc3 13:03 Michael Diaz is Hospitalizing Provider. ml 13:10 [facility] [place] Agreement was scanned into [employer] and attached to record. jp5 13:59 PCR was scanned into [employer] and attached to record. gb 15:07 Inserted saline lock: 20 gauge in left antecubital area The patient tolerated the kc3 procedure well. 15:10 Patient visited by Lupe Butler RN. kc3 15:44 Patient visited by Louann Barrera PCA. bnb 15:51 No procedures done that require assistance. kc3 16:53 Chest, 1 View Returned. EDMS 16:54 CT Chest Angio R/O PE Returned. EDMS 17:03 Written Provider Order was scanned into [employer] and attached to record. deg Administered Medications: 11:37 Drug: Albuterol 5 mg [albuterol sulfate 2.5 mg/0.5 mL solution for nebulization (1 mL)] kjn Route: Nebulizer; 11:37 Drug: Albuterol-Ipratropium 3 ml [ipratropium-albuterol 0.5 mg-3 mg(2.5 mg base)/3 mL kjn nebulization soln (3 mL)] Route: Inhalation; RT: 11:02 ABG's drawn from right brachial artery specimen sent pt. tolerated well. Initial Med kjn Neb Given as ordered. Respiratory: Breath sounds with crackles bilaterally. Order Results: Lab Order: CBC with Diff; SPEC'M 07/10/16 11:30 Test: WHITE BLOOD COUNT; Value: 8.5; Range: 4.0-10.0; Units: K/mm3; Status: F Test: RED BLOOD COUNT; Value: 2.20; Range: 4.30-6.10; Abnormal: Below low normal; Units: M/mm3; Status: F Test: HEMOGLOBIN; Value: 7.1; Range: 14.0-18.0; Abnormal: Below low normal; Units: g/dl; Status: F Test: HEMATOCRIT; Value: 20.9; Range: 42.0-52.0; Abnormal: Below low normal; Units: %; Status: F Test: MEAN CORPUSCULAR VOLUME; Value: 95.2; Range: 80.0-96.0; Units: fl; Status: F Test: MEAN CORPUSCULAR HEMOGLOBIN; Value: 32.4; Range: 27.0-33.0; Units: pg; Status: F Test: MEAN CORPUSCULAR HGB CONC; Value: 34.1; Range: 32.0-36.5; Units: g/dl; Status: F Test: RED CELL DISTRIBUTION WIDTH; Value: 20.5; Range: 11.5-14.5; Abnormal: Above high normal; Units: %; Status: F Test: PLATELET COUNT, AUTOMATED; Value: 26; Range: 150-450; Abnormal: Critical Low; Units: k/mm3; Status: F Test: NEUTROPHILS; Value: 67; Range: 35-75; Units: %; Status: F Test: LYMPHOCYTES; Value: 8; Range: 16-52; Abnormal: Below low normal; Units: %; Status: F Test: MONOCYTES; Value: 1; Range: 0-8; Units: %; Status: F Test: BLAST CELLS; Value: 21; Range: 0-0; Abnormal: Above high normal; Units: %; Status: F Test: ATYPICAL LYMPH; Value: 3; Range: 0-5; Units: %; Status: F Test: POLYCHROMASIA; Value: 1+; Status: F Test: ANISOCYTOSIS; Value: 2+; Status: F Test: MACROCYTOSIS; Value: 1+; Status: F Test: SMUDGE CELLS; Value: 1+; Status: F Lab Order: MED Profile; 07/10/16 11:30 Test: GLUCOSE, FASTING; Value: 114; Range: 80-110; Abnormal: Above high normal; Units: MG/DL; Status: F Test: BLOOD UREA NITROGEN; Value: 16; Range: 7-18; Units: MG/DL; Status: F Test: CREATININE FOR GFR; Value: 1.32; Range: 0.70-1.30; Abnormal: Above high normal; Units: MG/DL; Status: F Test: GLOMERULAR FILTRATION RATE; Value: 58.7; Range: >49; Status: F Test: SODIUM LEVEL; Value: 129; Range: 136-145; Abnormal: Below low normal; Units: MEQ/L; Status: F Test: POTASSIUM SERUM; Value: 3.7; Range: 3.5-5.1; Units: MEQ/L; Status: F Test: CHLORIDE LEVEL; Value: 92; Range: 98-107; Abnormal: Below low normal; Units: MEQ/L; Status: F Test: CARBON DIOXIDE LEVEL; Value: 23; Range: 21-32; Units: MEQ/L; Status: F Test: ANION GAP; Value: 14; Range: 8-16; Units: MEQ/L; Status: F Test: CALCIUM LEVEL; Value: 8.3; Range: 8.8-10.2; Abnormal: Below low normal; Units: MG/DL; Status: F Test Note: ; Units are mL/min/1.73 m2 Chronic Kidney Disease Staging per NKF: Stage I & II GFR >=60 Normal to Mildly Decreased Stage III GFR 30-59 Moderately Decreased Stage IV GFR 15-29 Severely Decreased Stage V GFR <15 Very Little GFR Left ESRD GFR <15 on QUICK SERVICE TECHNICIAN Lab Order: Liver Profile; 07/10/16 11:30 Test: AST/SGOT; Value: 20; Range: 15-37; Units: U/L; Status: F Test: ALT/SGPT; Value: 22; Range: 12-78; Units: U/L; Status: F Test: ALKALINE PHOSPHATASE; Value: 209; Range: 45-117; Abnormal: Above high normal; Units: U/L; Status: F Test: BILIRUBIN,TOTAL; Value: 0.4; Range: 0.2-1.0; Units: MG/DL; Status: F Test: BILIRUBIN,DIRECT; Value: 0.1; Range: 0.0-0.2; Units: MG/DL; Status: F Test: TOTAL PROTEIN; Value: 6.8; Range: 6.4-8.2; Units: GM/DL; Status: F Test: ALBUMIN; Value: 3.2; Range: 3.2-5.2; Units: GM/DL; Status: F Test: ALBUMIN/GLOBULIN RATIO; Value: 0.89; Range: 1.00-1.93; Abnormal: Below low normal; Status: F Lab Order: Amylase; [facility] 07/10/16 11:30 Test: AMYLASE; Value: 43; Range: 25-115; Units: U/L; Status: F Lab Order: Lipase; [facility] 07/10/16 11:30 Test: LIPASE; Value: 118; Range: 73-393; Units: U/L; Status: F Lab Order: CIP; [facility] 07/10/16 11:30 Test: CPK CREATINE PHOSPHOKINASE; Value: 103; Range: 39-308; Units: U/L; Status: F Test: CK-MB VALUE MASS; Value: 1.3; Range: 0.0-3.6; Units: NG/ML; Status: F Test: MB/CK RELATIVE INDEX; Value: 1.26; Range: < OR =4; Status: F Test Note: ; DIAGNOSIS CRITERIA MMB ng/ml Relative Index (RI) NON-AMI < or = 5 N/A [place]ONE > 5 < or = 4 AMI > 5 > 4 Lab Order: Troponin; [facility]07/10/16 11:30 Test: TROPONIN I; Value: < 0.02; Range: < 0.10; Units: NG/ML; Status: F Test Note: ; Troponin I Reference Interval for Savorfull LOCI: 99th Percentile= 0.00-0.045 ng/ml Risk Stratification: <= 0.10 ng/ml Decreased Risk for Adverse Clinical Events. 0.10-1.50 ng/ml Increased Risk for Adverse Clinical Events. Evaluation of additional criterion and/or repeat testing in 2-6 hours is suggested to rule out myocardial damage. >= 1.50 ng/ml Indicative of Myocardial Injury. Lab Order: Lactic Acid (Morton tube on ice); 07/10/16 11:30 Test: LACTIC ACID SEPSIS PROTOCOL; Value: 1.1; Range: 0.4-2.0; Units: MMOL/L; Status: F Lab Order: -Arterial Blood Gas; [facility]07/10/16 11:01 Test: ABG pH (ARTERIAL); Value: 7.540; Range: 7.350-7.450; Abnormal: Above high normal; Units: UNITS; Status: F Test: ABG PARTIAL PRESSURE CO2; Value: 28.4; Range: 35.0-45.0; Abnormal: Below low normal; Units: mmHg; Status: F Test: ABG PARTIAL PRESSURE O2; Value: 87.1; Range: 75.0-100.0; Units: mmHg; Status: F Test: ABG TOTAL CO2; Value: 24.6; Range: 23.0-31.0; Units: MEQ/L; Status: F Test: ABG HCO3; Value: 23.7; Range: 22.0-26.0; Units: MEQ/L; Status: F Test: ABG BASE EXCESS; Value: 1.4; Range: -2.0-2.0; Status: F Test: ABG STANDARD HCO3; Value: 25.7; Range: 22.0-26.0; Units: MEQ/L; Status: F Test: ABG O2 SATURATION; Value: 97.1; Range: 95.0-99.0; Units: %; Status: F Test: ABG DEVICE; Value: NASAL OSIEL; Status: F Lab Order: Magnesium Level; 07/10/16 11:30 Test: MAGNESIUM LEVEL; Value: 2.1; Range: 1.8-2.4; Units: MG/DL; Status: F Lab Order: Phosphorous Level; 07/10/16 11:30 Test: PHOSPHORUS LEVEL; Value: 3.5; Range: 2.5-4.9; Units: MG/DL; Status: F Lab Order: PLATELET ESTIMATE; 07/10/16 11:30 Test: PLATELET ESTIMATE; Value: MARKED DECREASE; Range: NORMAL; Status: F Lab Order: TYPE & SCREEN; 07/10/16 11:30 Test: AB SCREEN (INDIRECT MAX)VIS; Value: NEGATIVE; Status: F Test: IMMEDIATE SPIN CROSSMATCH; Value: [id number] O POSITIVE Compatible? Y; Status: F Test: IMMEDIATE SPIN CROSSMATCH; Value: [id number] O POSITIVE Compatible? Y; Status: F Lab Order: Fingerstick Blood Sugar; QUIN 07/10/16 10:21 Test: BEDSIDE GLUCOSE; Value: 107; Range: 80-115; Units: MG/DL; Status: F Test Note: ; RN Notified Doctor Notified Radiology Order: Chest, 1 View Test: Chest, 1 View REASON FOR EXAMINATION: Cough; AP PORTABLE CHEST: 07/10/2016.; ; Comparison: 04/03/2016, 10/17/2005 chest x-ray, CT chest 04/21/2016.; ; Clinical history: Cough.; ; Findings: There is an indwelling port catheter via the right jugular route with; tip in SVC unchanged. Lungs are hyperinflated. Linear atelectatic change left; CP angle and left lateral base is resolved from previous study. There is basilar; and other interstitial fibrotic change, mild but diffuse. There is right; infrahilar subsegmental atelectatic of the patchy density there. No dense; consolidation. There is no gross cardiomegaly allowing for portable technique.; The aorta is normal. Airway intact. No nodule, acute infiltrate, gross effusion; or mass. No widening of the mediastinum. Bones intact.; ; Impression:; ; 1. Underlying interstitial fibrosis without gross infiltrate, nodule, effusion; or edema. Some subtle right infrahilar patchy atelectasis suggested. The linear; atelectatic changes in the left CP angle and left lateral base are resolved since; the March 2016 study.; ; ; ; ; Signed by; Keo Urrutia MD 07/10/2016 04:21 P; Radiology Order: CT Head Without Contrast Test: CT Head Without Contrast REASON FOR EXAMINATION: weakness; CT HEAD WITHOUT CONTRAST:; ; HISTORY: Weakness.; ; Areas of decreased attention are present in the periventricular white matter.; This represents small vessel ischemic disease. There is no intraparenchymal; hemorrhage, mass or midline shift. The ventricular system and cortical sulci are; dilated consistent with mild volume loss. There is no extracerebral collection.; Mucosal thickening is present in the ethmoid, sphenoid and frontal sinuses, and; left mastoid air cells.; ; IMPRESSION:; ; 1. Small vessel ischemic disease.; ; 2. Mild volume loss.; ; ; Signed by; Dereje Elkins MD 07/10/2016 12:17 P; Radiology Order: CT Chest Angio R/O PE Test: CT Chest Angio R/O PE REASON FOR EXAMINATION: hypoxia; CT pulmonary angiogram: With IV contrast.; ; History: Hypoxia.; ; Comparison studies: April 21, [address] ; Contrast dose: 75 cc's of Isovue 370 are administered intravenously.; ; CT technique: Helical scanning is acquired and overlapping 1.5 mm and contiguous; 3 mm axial images are reformatted. In addition, a 3-D work station is deployed; to generate thick slab maximum intensity projection images in sagittal and; coronal imaging projections.; ; CT pulmonary angiographic findings: There is good opacification of the pulmonary; arterial tree and there is no CT evidence of pulmonary embolism. There is left; coronary artery vascular calcification. Thoracic aorta enhances homogeneously; and there is no evidence of aneurysm or dissection. Maximum intensity projection; images show no vessel cutoff or filling defect in the pulmonary arterial tree.; There is subsegmental atelectatic change in the left lower lobe and lingula at; the left base. There is an area of discoid atelectasis in the left upper lobe; more superiorly as well. No pulmonary mass lesion or definite infiltrate is; seen. No pleural or pericardial effusion is seen. No mediastinal or hilar; lymphadenopathy is observed. No adrenal lesion is seen. There is a right-sided; [id number] catheter. No bony destructive lesion is seen.; ; Impression:; ; No CT evidence of pulmonary embolism. Patchy areas of discoid atelectasis in the; left upper lobe, lingula, and left lower lobe. Left coronary artery vascular; calcification again noted. No other significant abnormality.; ; ; Signed by; Franklin Montero MD 07/10/2016 04:52 P; Outcome: 12:53 CT Study completed. 3 13:03 Decision to Hospitalize by Provider. ml 15:37 CT Study completed. kc3 15:51 Discharge Assessment: patient administered narcotics - no. The following High Risk [facility] Discharge criteria are identified: None. Admitted to PCU accompanied by nurse, family with patient, via stretcher, with oxygen, on monitor, with chart. Condition: stable. Admission hand-off: Report Faxed. Property :Personal belongings accompany Pt. 15:53 Patient left the ED. kc3 18:07 Admission hand-off: Report called to [facility]. kc3 18:17 Patient left the ED. kcs Signatures: Dispatcher [employer] EDRI Tahira Hi MD MD ml Sleeman, Kacey, RN RN kcs Deisy Hobbs, Flux Tube Attendant Unit deg Radha Jovel, Reg Reg gb Ignacia Muniz RN RN hs1 Mic Stanley jml1 Ester Berry Jennalee 5 Lupe Butler RN RN kc3 Louann Barrera, EULA FAMILY COUNSELOR bnb Corrections: (The following items were deleted from the chart) 12:51 12:45 Neurological: Level of Consciousness is awake, alert, obeys commands, Oriented to kc3 person, place, time, kc3 MTDD
[2016-07-10 18:38] VITALS: BP 136/95
[2016-07-10] MEDS ORDERED: VANCOMYCIN HCL 500 MG in D5W MINI-BAG PLUS 100 ML IV ONE (19:00)
[2016-07-10 20:00] VITALS: BP 123/65
--- NOTE | 2016-07-10 20:05 | ECGEPIP ---
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
[2016-07-10] MEDS: TRIAMCINOLONE ACET 0.1% CREAM 80 GM TOP SCH (21:00)
[2016-07-10] MEDS ORDERED: FLUCONAZOLE 100 MG TAB PO SCH (21:00)
[2016-07-10] MEDS: MONTELUKAST 10 MG TAB PO SCH (21:41)
[2016-07-10] MEDS: TAMSULOSIN 0.4 MG CAP PO SCH (21:41)
[2016-07-10] MEDS: ACYCLOVIR 200 MG CAPSULE PO SCH (21:41)
[2016-07-10 22:00] VITALS: BP 114/59
[2016-07-10] MEDS: SYMBICORT 160/4.5MCG INHALER 6GM INH SCH (22:10)
[2016-07-10] MEDS: VANCOMYCIN HCL 1,000 MG, VIAL MATE ADAPTER 1 EACH in D5W 250 ML IV SCH (22:28)
[2016-07-10 22:50] VITALS: BP 97/50
[2016-07-10 23:50] VITALS: BP 124/70
[2016-07-11] VITALS (18 sets, daily range): BP systolic 103–169; BP diastolic 54–88
--- NOTE | 2016-07-11 00:22 | CR ---
DATE OF CONSULTATION: 07/10/2016 NEUROLOGY CONSULTATION: REASON FOR CONSULTATION: Bilateral upper and lower extremity limb weakness with paresthesias worsening over the past 2 weeks. The patient is a 60-year-old male presenting to the emergency department at [facility] with progressive weakness and numbness involving his limbs over the past 2 to 4 weeks. 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 The patient also has a history of ryhwl-mwfvqc-gxkl disease. The patient states that ever since he started tacrolimus he has been having paresthesias involving his fingertips and a little bit in his toes. The patient was ambulating well in the summertime; however, in the past month, he has been leaning and grabbing onto different items within the room to maintain his balance. Day by day, his symptoms have progressed over the past 2 weeks for sure as per his family causing him to lose his independence in regards to ambulation. He initially was requiring a walker and now he is unable to walk at all. He denies any double vision, dysarthria, dysphasia or any shortness of breath. He did have a productive cough and chronically takes azithromycin three times per week. He denies any chest pain, shortness of breath, abdominal pain, constipation, diarrhea, or dysuria. REVIEW OF SYSTEMS: 14-point review of systems obtained and is negative except as per history of the present illness. 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 PAST SURGICAL HISTORY: Fracture of right thumb. Mjeyjk-M-Poss placement August 2015. FAMILY HISTORY: Noncontributory. SOCIAL HISTORY: The patient denies use of any alcohol, tobacco or illicit drugs. The patient denies any recent travel. ALLERGIES: None. MEDICATIONS: - acyclovir 200 mg by mouth twice a day - azithromycin 250 mg by mouth three times a week - budesonide/formoterol (Symbicort) 160-4.5 mcg Act two puffs inhaled bi - fluconazole 200 mg by mouth nightly - magnesium oxide 400 mg by mouth twice a day - montelukast 10 mg by mouth nightly - pantoprazole 40 mg by mouth daily - sirolimus 1 mg tablet by mouth daily - tamsulosin 0.4 mg by mouth twice a day - triamcinolone acetate 0.1% cream topical twice a day - albuterol two puffs inhaled four times a day as needed for shortness of breath - Peridex twice a day as needed for bleeding gums PHYSICAL EXAMINATION: The patient is alert, oriented to person, place and time. Speech, language and comprehension are intact. Pupils are 3 mm round, reactive to light. Extraocular movements are intact in all directions. Sensation V1, V2, V3 is intact to light touch. No facial asymmetry on activation. Palate elevates symmetrically. Tongue is midline. Oropharynx is quite dry. Hearing is subjectively equal to finger rub. There is no pronator drift. Strength is 4+ in bilateral deltoids, 5- in bilateral biceps, 4's in bilateral triceps, 3+ in the finger extensors, finger flexors, wrist extensors, 4- in bilateral iliopsoas, 5's in bilateral quadriceps, 3- in the right tibialis anterior and 2+ in the left tibialis anterior. Deep tendon reflexes are absent at the Achilles and patellas and trace at the left triceps and absent at the biceps and right triceps. Sensory is decreased to light touch in all four extremities with a gradient distally. Joint position sense is significantly reduced at the toes and adequate at the ankles. Coordination: [id number] without ataxia or dysmetria. Gait deferred. ASSESSMENT: 1. Severe profound weakness involving distal arms and legs with progressive paresthesias, worsening over the past 2 to 4 weeks with areflexia on examination. 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 2. Underlying axonal peripheral polyneuropathy secondary to tacrolimus use is possible but would not explain the profound sudden weakness in all four extremities. PLAN: Due to the patient having severe drop in platelet count, the lumbar puncture would not be recommended at this time. However, if the patient were to receive platelet transfusion, it is possible to obtain a lumbar puncture for the supportive diagnosis of CIDP. Due to the risk of performing a lumbar puncture with the current low platelets, it was offered to the patient to be transferred to either [facility] or [facility] for inpatient EMG nerve conduction study which is not available at [facility]. The patient declined and is in agreement to go ahead with the spinal tap at this point in time. If protein in the spinal fluid is not significantly elevated, we still cannot entirely exclude the possibility of a peripheral polyneuropathy related to CIDP. The patient may benefit from IVIG infusion over the next 5 days versus IV Solu-Medrol use 1000 mg daily for 5 days. Recommend aggressive physical therapy (PT), occupational therapy (OT). Overall, considering CIDP as a possibility in the setting of a patient with significant immunosuppression, this may represent an unfavorable prognosis due to the profound weakness the patient has had and significant weight loss over the past few months relative to the patient's underlying severe medical condition. Recommend supportive care. Will continue to follow.
[2016-07-11] MEDS: PIPERACILLIN/TAZOBACTAM SOD 3.375 GM in D5W MINI-BAG PLUS 50 ML IV SCH ×4 (01:22→23:55)
[2016-07-11] MEDS: VANCOMYCIN HCL 1,000 MG, VIAL MATE ADAPTER 1 EACH in D5W 250 ML IV SCH ×2 (05:54→18:10)
[2016-07-11] MEDS: SYMBICORT 160/4.5MCG INHALER 6GM INH SCH ×2 (08:01→20:03)
[2016-07-11] MEDS: SODIUM CHLORIDE 0.9% INJ 10 ML SYR IV SCH (09:00)
[2016-07-11] MEDS ORDERED: SODIUM CHLORIDE 0.9% INJ 10 ML SYR IV PRN (09:00)
[2016-07-11] MEDS: TRIAMCINOLONE ACET 0.1% CREAM 80 GM TOP SCH ×2 (09:08→20:30)
[2016-07-11] MEDS: TAMSULOSIN 0.4 MG CAP PO SCH ×2 (09:08→20:54)
[2016-07-11] MEDS: SIROLIMUS 1 MG PO SCH (09:08)
[2016-07-11] MEDS: ACYCLOVIR 200 MG CAPSULE PO SCH ×2 (09:08→20:54)
[2016-07-11] MEDS: PANTOPRAZOLE 40MG TAB (PROTONIX) PO SCH (09:08)
[2016-07-11 10:16] LABS: DIFF SLIDE NUMBER 66; MEAN CORPUSCULAR HEMOGLOBIN 31.6 pg (27.0-33.0); MEAN CORPUSCULAR HGB CONC 34.6 g/dl (32.0-36.5); MEAN CORPUSCULAR VOLUME 91.3 fl (80.0-96.0); WHITE BLOOD COUNT 11.7 K/mm3 (4.0-10.0)
[2016-07-11 10:23] LABS: PLATELET COUNT, AUTOMATED 75 k/mm3 (150-450)
[2016-07-11 10:32] LABS: ALBUMIN 3.1 GM/DL (3.2-5.2); ALBUMIN/GLOBULIN RATIO 0.94 (1.00-1.93); ALKALINE PHOSPHATASE 211 U/L (45-117); ALT/SGPT 24 U/L (12-78); ANION GAP 9 MEQ/L (8-16); AST/SGOT 26 U/L (15-37); BILIRUBIN,TOTAL 0.8 MG/DL (0.2-1.0); BLOOD UREA NITROGEN 10 MG/DL (7-18); CALCIUM LEVEL 7.9 MG/DL (8.8-10.2); CARBON DIOXIDE LEVEL 26 MEQ/L (21-32); CHLORIDE LEVEL 95 MEQ/L (98-107); CREATININE FOR GFR 1.11 MG/DL (0.70-1.30); GLOMERULAR FILTRATION RATE > 60.0 (>49); GLUCOSE, FASTING 97 MG/DL (80-110); POTASSIUM SERUM 3.7 MEQ/L (3.5-5.1); SODIUM LEVEL 130 MEQ/L (136-145); TOTAL PROTEIN 6.4 GM/DL (6.4-8.2)
[2016-07-11 11:47] LABS: BLAST CELLS 27 % (0-0)
[2016-07-11 11:48] LABS: ANISOCYTOSIS 2+
--- NOTE | 2016-07-11 13:16 | IPNPDOC ---
Date Seen The patient was seen on 07/11/16. Subjective CC/HPI The patient is a 60-year-old male admitted with a reason for visit of Weaknessof Both Legs. Events since last encounter no new events, continues to have chronic cough , no overt bleeding from anywhere. Problems (1) Acute leukemia Status: Acute Problem Text: has 21% blasts in peripheral blood has transformed into acute leukanemia at this point weakness could be due to CSF spread of leukemic cells , Acute monocytic leukanemia known to cause radiculopathy will get csf study spoke with Dr Barrera medical oncologist; at [phone] Not a candidate for any aggressive chemotherapy. Poor prognosis. (2) Weakness of both legs Status: Acute Problem Text: could be Gullian barre syndrome vs CIDP . will need spinal tap once platelet count has improved. will need NCV studies as outpatient. (3) Anemia Status: Chronic (4) Thrombocytopenia Status: Chronic Problem Text: worsening over the past 3 months. 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 (7) BPH (benign prostatic hyperplasia) Status: Chronic Problem Text: continue flomax. 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 will continue montelukast, symbicort, albuterol. Plan/VTE VTE Prophylaxis Ordered?: Yes VS, I&O, 24H, Fishbone Vital Signs Date Time Temp Pulse Resp B/P Pulse Ox O2 Delivery O2 Flow Rate FiO2 07/11/16 12:00 99.1 97 18 123/67 93 Nasal Cannula 2.0 I&O- Last 24 Hours up to 6 AM 07/11/16 06:00 Intake Total 2263 ml Output Total 1250 ml Balance 1013 ml Laboratory Tests 2 07/10/16 15:58: Urine Amorphous Sediment SMALLH, Urine Appearance CLOUDYH, Urine Color YELLOW, Urine pH 5.0, Urine Specific [place] 1.010, Urine Protein NEGATIVE, Urine Glucose (UA) NEGATIVE, Urine Ketones NEGATIVE, Urine Urobilinogen 0.2, Urine Bilirubin NEGATIVE, Urine Leukocyte Esterase NEGATIVE, Urine Bacteria (Auto) 1+H , Urine Blood 1+H, Urine Calcium Carbonate Cryst(Auto) , Urine Calcium Oxalate Cryst (Auto) , Urine Calcium Phosphate Miesha (Auto) , Urine Cellular Casts , Urine Cystine Crystals , Urine Granular Casts (Auto) , Urine Hyaline Casts (Auto ) 4, Urine Leucine Crystals , Urine Mucus (Auto) SMALL, Urine Nitrite NEGATIVE, Urine Oval Fat Bodies (Auto) , Urine RBC (Auto) 7H, Urine Renal Epithelial Cells , Urine Sperm (Auto) , Urine Squamous Epithelial Cells 0, Urine Transitional Epithelial Cells , Urine Trichomonas (Auto) , Urine Triple Phosphate Cryst (Auto) , Urine Tyrosine Crystals , Urine Uric Acid Crystals ( Auto) , Urine WBC (Auto) 8H, Urine Waxy Casts (Auto) , Urine Yeast-Like Cells ( Auto) 07/11/16 10:02: Blood Urea Nitrogen 10, Creatinine 1.11, Sodium Level 130L, Potassium Level 3.7 , Chloride Level 95L, Carbon Dioxide Level 26, Calcium Level 7.9L, Aspartate Amino Transf (AST/SGOT) 26, Alanine Aminotransferase (ALT/SGPT) 24, Alkaline Phosphatase 211H, Total Bilirubin 0.8#, Total Protein 6.4, Albumin 3.1L, Albumin /Globulin Ratio 0.94L, Anion Gap 9, Anisocytosis 2+, Atypical Lymphocytes 1, Blastocytes 27H, Glomerular Filtration Rate > 60.0, Lymphocytes (Manual) 9L, Magnesium Level 2.0, Metamyelocytes 1H, Monocytes (Manual) 1, Myelocytes 1H, Neutrophils 60, Platelet Estimate DECREASED Laboratory Tests 07/11/16 10:02 Calcium Level 7.9 L, Aspartate Amino Transf (AST/SGOT) 26, Alanine Aminotransferase (ALT/SGPT) 24, Alkaline Phosphatase 211 H, Total Bilirubin 0.8 #, Total Protein 6.4, Albumin 3.1 L, Red Blood Count 2.75 L, Mean Corpuscular Volume 91.3, Mean Corpuscular Hemoglobin 31.6, Mean Corpuscular Hemoglobin Concent 34.6, Red Cell Distribution Width 21.0 H Microbiology 07/10/16 Blood Culture - Preliminary, Resulted No growth after 24 hours . All specim... 07/10/16 Blood Culture - Preliminary, Resulted No growth after 24 hours . All specim... 07/10/16 MRSA Screen, Received Pending 07/10/16 Urine Culture, Received Pending MIRTHA PAGE MD Jul 11, 2016 13:15
[2016-07-11] MEDS ORDERED: SLF 3 ML SYR IV PRN (14:15)
[2016-07-11] MEDS: ALBUTEROL SULFATE 2.5 MG/0.5 ML INH NEB SOLN NEB SCH (15:23)
[2016-07-11 15:46] LABS: INR 1.04
[2016-07-11 17:04] LABS: GLUCOSE CSF 59 MG/DL (40-75)
[2016-07-11 17:32] LABS: RBC CSF AUTO 1 /mm3 (0-0); WBC CSF AUTO 13 /mm3 (0-10)
[2016-07-11 17:34] LABS: APPEARANCE, CSF CLEAR (CLEAR); COLOR, CSF COLORLESS (COLORLESS); CSF DIFF IF INDICATED? YES (NO); CSF TUBE# CELL CNT TUBE 3
--- NOTE | 2016-07-11 17:51 | REP ---
FLUOROSCOPIC GUIDANCE FOR LUMBAR PUNCTURE: The procedure was performed under the direct supervision of Dr. Montero. The risks and benefits of the procedure were explained to the patient and informed consent was obtained. The L3-4 interspace was localized using fluoroscopic guidance. The skin was prepped and draped in a sterile fashion. 1% lidocaine was used as a local anesthetic. Using fluoroscopic guidance, a 22-gauge spinal needle was inserted and advanced into the thecal sac. The opening pressure measured 18 cm of water. 12 mL of spinal fluid was withdrawn and sent to the lab The patient tolerated the procedure well and there were no immediate complications. 15 seconds of fluoroscopy time was utilized for this procedure. Reviewed by CHANTELLE Herron 07/12/2016 04:03 PEdited and Signed by Franklin Montero MD 07/12/2016 04:33 P
[2016-07-11 20:42] LABS: CSF DILUENT LOT # 6109
[2016-07-11] MEDS: MONTELUKAST 10 MG TAB PO SCH (20:54)
[2016-07-11] MEDS: ACETAMINOPHEN TAB 650MG DOSE (2X325MG) PO PRN ×2 (20:54→23:57)
[2016-07-11] MEDS: SLF 3 ML SYR IV SCH (20:55)
[2016-07-12] VITALS: BP 121/62
[2016-07-12] MEDS: ALBUTEROL SULFATE 2.5 MG/0.5 ML INH NEB SOLN NEB SCH ×4 (00:42→16:00)
[2016-07-12 04:00] VITALS: BP 126/60
[2016-07-12] MEDS: VANCOMYCIN HCL 1,000 MG, VIAL MATE ADAPTER 1 EACH in D5W 250 ML IV SCH ×2 (05:11→17:48)
[2016-07-12] MEDS: SLF 3 ML SYR IV SCH ×3 (05:11→20:31)
[2016-07-12 05:45] LABS: DIFF SLIDE NUMBER 45; MEAN CORPUSCULAR HEMOGLOBIN 31.5 pg (27.0-33.0); MEAN CORPUSCULAR HGB CONC 35.3 g/dl (32.0-36.5); MEAN CORPUSCULAR VOLUME 89.5 fl (80.0-96.0); RED CELL DISTRIBUTION WIDTH 19.6 % (11.5-14.5); WHITE BLOOD COUNT 9.4 K/mm3 (4.0-10.0)
[2016-07-12 05:50] LABS: ALBUMIN 2.9 GM/DL (3.2-5.2); ALBUMIN/GLOBULIN RATIO 0.81 (1.00-1.93); ALKALINE PHOSPHATASE 230 U/L (45-117); ALT/SGPT 24 U/L (12-78); ANION GAP 11 MEQ/L (8-16); AST/SGOT 24 U/L (15-37); BILIRUBIN,TOTAL 0.6 MG/DL (0.2-1.0); BLOOD UREA NITROGEN 10 MG/DL (7-18); CALCIUM LEVEL 8.5 MG/DL (8.8-10.2); CARBON DIOXIDE LEVEL 25 MEQ/L (21-32); CHLORIDE LEVEL 95 MEQ/L (98-107); CREATININE FOR GFR 1.21 MG/DL (0.70-1.30); GLOMERULAR FILTRATION RATE > 60.0 (>49); GLUCOSE, FASTING 99 MG/DL (80-110); MAGNESIUM LEVEL 1.9 MG/DL (1.8-2.4); POTASSIUM SERUM 3.5 MEQ/L (3.5-5.1); SODIUM LEVEL 131 MEQ/L (136-145); TOTAL PROTEIN 6.5 GM/DL (6.4-8.2)
[2016-07-12 05:53] LABS: PLATELET COUNT, AUTOMATED 52 k/mm3 (150-450)
[2016-07-12 06:15] LABS: BASOPHILS 1 % (0-4); BLAST CELLS 24 % (0-0)
[2016-07-12 06:16] LABS: ANISOCYTOSIS 2+
[2016-07-12 08:00] VITALS: BP 118/59
[2016-07-12] MEDS: SYMBICORT 160/4.5MCG INHALER 6GM INH SCH ×2 (08:16→20:36)
[2016-07-12] MEDS: PIPERACILLIN/TAZOBACTAM SOD 3.375 GM in D5W MINI-BAG PLUS 50 ML IV SCH ×2 (08:53→15:28)
[2016-07-12] MEDS: ACYCLOVIR 200 MG CAPSULE PO SCH ×2 (08:54→20:30)
[2016-07-12] MEDS: SIROLIMUS 1 MG PO SCH (08:54)
[2016-07-12] MEDS: TAMSULOSIN 0.4 MG CAP PO SCH ×2 (08:55→20:31)
[2016-07-12] MEDS: PANTOPRAZOLE 40MG TAB (PROTONIX) PO SCH (08:55)
[2016-07-12] MEDS: SODIUM CHLORIDE 0.9% INJ 10 ML SYR IV SCH (08:56)
[2016-07-12] MEDS: TRIAMCINOLONE ACET 0.1% CREAM 80 GM TOP SCH ×2 (08:57→20:31)
[2016-07-12] MEDS ORDERED: PENTAMIDINE ISETH NEB 300 MG SOLN VIAL INH ONE (09:00)
[2016-07-12] MEDS ORDERED: NON-FORMULARY 1 EA EA INH ONE (09:00)
[2016-07-12] MEDS ORDERED: AZITHROMYCIN 250 MG TAB PO SCH (09:00)
[2016-07-12 11:01] LABS: CSF GROUP B STREP NEGATIVE (NEGATIVE); CSF H. INFLUENZA NEGATIVE (NEGATIVE); CSF N MENINGITIDIS ACYW135 NEGATIVE (NEGATIVE); CSF STREP PNUEMO NEGATIVE (NEGATIVE)
[2016-07-12 12:00] VITALS: BP 102/55
--- NOTE | 2016-07-12 13:09 | IPNPDOC ---
Subjective General Date Seen The patient was seen on 07/12/16. Chief Complaint/HPI The patient is a 60-year-old male admitted with a reason for visit of Weaknessof Both Legs. Subjective Events since last encounter no new complaints. denies any sob at rest , feels better in propped up position. Objective Physical Examination General Exam: Positive: Alert, No Acute Distress Eye Exam: Positive: Conjunctiva & lids normal, EOMI, PERRLA, Negative: Sclera icteric ENT Exam: Positive: Atraumatic, Mucous membr. moist/pink, Pharynx Normal Neck Exam: Positive: Supple, Negative: JVD, thyromegaly Chest Exam: Positive: Rales, Rhonchi Heart Exam: Positive: Normal S1, Normal S2, Rate Normal, Regular Rhythm, Negative: Murmurs, Rubs Telemetry: Positive: No significant arrhythmia Abdomen Exam: Positive: Normal bowel sounds, Soft, Negative: Hepatospenomegaly, Tenderness Extremity Exam: Positive: Normal pulses, Negative: Clubbing, Cyanosis, Edema Skin Exam: Positive: Rash Assessment /Plan Problems Problems: (1) Acute leukemia Status: Acute Problem Text: has 21% blasts in peripheral blood has transformed into acute leukanemia at this point csf with only 13 cells and 90 protein. So unlikely leukemic involvement of the meninges as too low cell count. spoke with Dr Barrera medical oncologist; at [phone] Not a candidate for any aggressive chemotherapy. Poor prognosis with few days to weeks. Dr Day to see patient. 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 csf with elevated protein. with poor prognosis from his leukemia pateint does not want any further treatment for CIDP (3) Anemia Status: Chronic (4) Thrombocytopenia Status: Chronic Problem Text: worsening over the past 3 months. will give more platelet transfusion (5) H/O: CML (chronic myeloid leukemia) Status: Chronic Problem Text: s/p bone marrow transplant now on sirolimus (6) Vdsav-owduwy-djgi disease Status: Chronic Problem Text: in the skin and lungs. (7) BPH (benign prostatic hyperplasia) Status: Chronic Problem Text: continue flomax. 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 will continue montelukast, symbicort, albuterol. Plan/VTE VTE Prophylaxis Ordered?: Yes VS, I&O, 24H, [facility] Vital Signs/I&O Vital Signs Date Time Temp Pulse Resp B/P Pulse Ox O2 Delivery O2 Flow Rate FiO2 07/12/16 12:00 98.7 96 26 102/55 96 Room Air 07/12/16 04:00 2.0 I&O- Last 24 Hours up to 6 AM 07/12/16 06:00 Intake Total 1592 ml Output Total 1725 ml Balance -133 ml Laboratory Data 24H LABS Laboratory Tests 2 07/11/16 14:25: Prothromb Time International Ratio 1.04, Prothrombin Time 13.7 07/11/16 16:27: CSF Appearance CLEAR, CSF Cell Count Tube # TUBE 3, CSF Color COLORLESS, CSF Eosinophils % 0.0, CSF Lymphocytes % 30.0H, CSF Monocytes % 40.0H, CSF Neutrophils % 30.0H, CSF RBC 1H, CSF WBC 13H 07/11/16 16:28: CSF Glucose 59, CSF Haemophilus influenzae B Ag NEGATIVE, CSF N. meningitidis ACY/W135 Ag NEGATIVE, CSF N. meningitidis B,E or E.coli NEGATIVE, CSF Streptococcus B Antigen NEGATIVE, CSF Streptococcus pneumoniae Ag NEGATIVE, CSF Total Protein 90.4H, CSF Tube Number TUBE 1 07/12/16 05:20: Blood Urea Nitrogen 10, Creatinine 1.21, Sodium Level 131L, Potassium Level 3.5 , Chloride Level 95L, Carbon Dioxide Level 25, Calcium Level 8.5L, Aspartate Amino Transf (AST/SGOT) 24, Alanine Aminotransferase (ALT/SGPT) 24, Alkaline Phosphatase 230H, Total Bilirubin 0.6, Total Protein 6.5, Albumin 2.9L, Albumin/ Globulin Ratio 0.81L, Anion Gap 11, Anisocytosis 2+, Atypical Lymphocytes 1, Basophils (Manual) 1, Blastocytes 24H, Glomerular Filtration Rate > 60.0, Lymphocytes (Manual) 10L, Magnesium Level 1.9, Neutrophils 64, Platelet Estimate MARKED DECREASE CBC/BMP Laboratory Tests 07/12/16 05:20 Calcium Level 8.5 L, Aspartate Amino Transf (AST/SGOT) 24, Alanine Aminotransferase (ALT/SGPT) 24, Alkaline Phosphatase 230 H, Total Bilirubin 0.6 , Total Protein 6.5, Albumin 2.9 L, Red Blood Count 2.70 L, Mean Corpuscular Volume 89.5, Mean Corpuscular Hemoglobin 31.5, Mean Corpuscular Hemoglobin Concent 35.3, Red Cell Distribution Width 19.6 H Microbiology Microbiology 07/10/16 Blood Culture - Preliminary, Resulted No Growth after 48 hours. All Specime... 07/10/16 Blood Culture - Preliminary, Resulted No Growth after 48 hours. All Specime... 07/11/16 Fungal Smear, Received Pending 07/11/16 Fungal Culture, Received Pending 07/11/16 Viral Culture, Received Pending 07/11/16 Gram Stain - Final, Resulted 07/11/16 CSF Culture, Resulted Pending 07/11/16 Gram Stain - Final, Resulted 07/11/16 Sputum Culture, Resulted Pending 07/10/16 MRSA Screen - Final, Complete 07/10/16 Urine Culture - Final, Complete MIRTHA PAGE MD Jul 12, 2016 13:09
[2016-07-12 16:00] VITALS: BP 123/66
--- NOTE | 2016-07-12 17:41 | CR ---
DATE OF CONSULTATION: 07/12/2016 REASON FOR REFERRAL: Chronic myelomonocytic leukemia (CMML) with increased blasts. HISTORY OF PRESENT ILLNESS: Mr. Almaguer is a 60-year-old man with known CMML, who underwent an unrelated bone marrow transplant in September 2015 for CMML. He subsequently had a relapse and started azacitidine in March 2016; however, he was noted to have progressive increase in his blasts lately. He is currently admitted for lower extremity weakness and has been seen by neurology with an impression of chronic inflammatory demyelinating polyneuropathy (CIDP). Dr. Barrera, his transplant medical oncologist in [facility], has been consulted and is of the opinion that Mr. Almaguer is no longer a candidate for additional chemotherapy options because of his suboptimal performance status and poor prognosis. I was called to discuss Mr. Almaguer's prognosis. Symptom-perez Mr. Almaguer is mostly in bed. He is frustrated about staying in the hospital and wants to go home. IMPRESSION AND PLAN: Mr Almaguer is a 60-year-old man with relapsed chronic myelomonocytic leukemia (CMML ) with latest disease progression on azacitidine chemotherapy. I discussed Mr. Almaguer's poor prognosis with him and his family. I recommended a hospice referral, to which he agreed. He was concerned about having a hospital bed at his home, and I will ask Dr. Wright to look into arrangements for this. Thank you for informing me of his admission. EDI
--- NOTE | 2016-07-12 19:18 | EDDOCDS ---
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 Patient states coughing up yellow sputum for the past couple of weeks. The last date and time the patient was known to be well was was at 10:17 on July 10, 2016. No acute neurological deficit is noted. Pre-hospital glucose is not applicable to this patient. Adult Sepsis Screening: The patient does not have new or worsening altered mentation. Patient's respiratory rate is less than 22. Systolic blood pressure is greater than 100. Patient has a qSOFA score of 0- Negative Sepsis Screen. Suicide/Homicide risk assessment- the patient denies having any suicidal and/or homicidal ideations and does not present with any other emotional, behavioral or mental health complaints. 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 Transition of care: patient was not received from another setting of care. 10:14 Acuity: GIGI Level 3 hs1 10:14 Method Of Arrival: Ambulance hs1 Triage Assessment: 10:22 The onset of the patients symptoms was more than three hours ago. General: Appears in hs1 no apparent distress, Behavior is appropriate for age, cooperative. Pain: Denies pain. Neurological: Level of Consciousness is awake, alert, obeys commands, Reports progressive weakness -daughter and states that he has progressed from being able to walk to now walking with walker to no not able to walk. Patient also states increased neuropathy - tingling in hands and feet. Patient having difficulty moving feet. . Cardiovascular: Rhythm is sinus rhythm with unifocal PVCs. Derm: Skin is dry, very dry. Skin is normal. 12:53 HIV screening NA for this visit Offered previously. kc3 Historical: - Allergies: no known allergies; - Home Meds: 1. montelukast 10 mg oral tab 1 tab once daily 2. pantoprazole 40 mg oral TbEC 1 tab once daily 3. sirolimus 1 mg oral tab once daily 4. tamsulosin 0.4 mg oral cp24 1 cap once daily 5. triamcinolone 0.1% twice a day cream 6. acyclovir 200 mg Oral cap 2 caps 2 times per day 7. azithromycin 250 mg Oral tab 3 times a week 8. Chlorhexidine 0.12% solution 15mLs by mouth 2 times a day, swish and spit out. 9. fluconazole 200 mg Oral tab 1 tab once daily 10. Magnesium 1 tab twice a day - PMHx: Leukemia; Umbilical hernia; Bone marrow transplant; Stem cell transplant; - PSHx: fracture repair to right thumb; - Social history: Smoking status: Patient states was never smoker of tobacco. No barriers to communication noted, The patient speaks fluent Montserratian, Speaks appropriately for age. - Family history: Not pertinent. - : The pt / caregiver states he / she is not on anticoagulants. Home medication list is obtained from the patient. - Exposure Risk Screening:: None identified. Screenin:47 Screening information is obtained from the patient. Fall risk: At risk due to weakness. kc3 Assistance ADL's: requires no assistance with activities of daily living. Abuse/DV Screen: The patient / caregiver reports he/she is: not in a situation that causes fear, pain or injury. Nutritional screening: No deficits noted. Advance Directives: Currently, there is a health care proxy, Christa Almaguer, . There is no active DNR order. There is a living will, but a copy is not available at this time. home support is adequate. Assessment: 10:30 General: Appears in no apparent distress, comfortable, Behavior is appropriate for age, kc3 cooperative. Pain: Denies pain. Neurological: Level of Consciousness is awake, alert, obeys commands, Oriented to person, place, time. 11:00 General: Appears in no apparent distress, comfortable, Behavior is appropriate for age, kc3 cooperative. Pain: Denies pain. Neurological: Level of Consciousness is awake, alert, obeys commands, Oriented to person, place, time. Cardiovascular: Rhythm is sinus tachycardia. Respiratory: Airway is patent Respiratory effort is even, unlabored, Breath sounds are coarse bilaterally. Reports cough that is productive. Derm: Skin is fragile, Skin is dry, Skin is normal. Musculoskeletal: Circulation, motion, and sensation intact. 12:00 General: Appears in no apparent distress, comfortable, Behavior is appropriate for age, kc3 cooperative, Pt resting on stretcher with no complaints at this time. Per Dr. Morton, pt allowed to take home transplant meds. Family at bedside. . Pain: Denies pain. Neurological: Level of Consciousness is awake, alert, obeys commands, Oriented to person, place, time. Cardiovascular: Rhythm is irregular. Respiratory: Airway is patent Respiratory effort is even, unlabored. Derm: see above note. 12:45 General: Appears in no apparent distress, comfortable, Behavior is appropriate for age, kc3 cooperative, Pt assisted to comfortable position in bed. Family at bedside. . Pain: Denies pain. Neurological: Level of Consciousness is awake, alert, obeys commands, Oriented to person, place, time, Reports weakness. Cardiovascular: Rhythm is irregular. Respiratory: Airway is patent Respiratory effort is even, unlabored. Derm: See above note. Musculoskeletal: Circulation, motion, and sensation intact. 13:30 General: Appears in no apparent distress, comfortable, Behavior is appropriate for age, kc3 cooperative, Pt resting on stretcher with family at bedside with no complaints at this time. . Pain: Denies pain. Neurological: Level of Consciousness is awake, alert, obeys commands. Cardiovascular: Rhythm is irregular. Respiratory: Airway is patent Respiratory effort is even, unlabored. Derm: see above note. 14:40 General: Appears in no apparent distress, comfortable, Pt resting on stretcher appears kc3 to be sleeping. No complaints reported. Family at bedside. Pt updated on plan of care. Respirations even and unlabored. Pt remains on oxygen while sleeping. Cardiac rhythm is irregular. . 15:50 General: Appears in no apparent distress, comfortable, Behavior is appropriate for age, kc3 cooperative. Pain: Denies pain. Neurological: Level of Consciousness is awake, alert, obeys commands, Oriented to person, place, time, Reports weakness. Cardiovascular: Rhythm is irregular. Respiratory: Airway is patent Respiratory effort is even, unlabored, Reports cough that is productive. Derm: see above note. Musculoskeletal: Circulation, motion, and sensation intact. 16:35 General: Appears in no apparent distress, comfortable, Behavior is appropriate for age, kc3 cooperative. Pain: Denies pain. Neurological: Level of Consciousness is awake, alert, obeys commands, Oriented to person, place, time, Reports weakness. Cardiovascular: Rhythm is irregular. Respiratory: Airway is patent Respiratory effort is even, unlabored. Derm: Skin is normal. 17:31 General: Appears in no apparent distress, comfortable, Behavior is appropriate for age, kc3 cooperative. Pain: Denies pain. Neurological: Level of Consciousness is awake, alert, obeys commands, Oriented to person, place, time. Cardiovascular: Rhythm is irregular. Respiratory: Airway is patent Respiratory effort is even, unlabored. Derm: Skin is normal. 18:04 General: Appears in no apparent distress, comfortable, Behavior is appropriate for age, kc3 cooperative, Pt resting on stretcher. No complaints at this time. Family at bedside. . Pain: Denies pain. Neurological: Level of Consciousness is awake, alert, obeys commands, Oriented to person, place, time. Neurological: Reports weakness. Cardiovascular: Rhythm is irregular. Respiratory: Airway is patent Respiratory effort is even, unlabored. Derm: see previous note. Vital Signs: 10:21 BP 129 / 72 (auto/); hs1 10:23 Pulse 104 MON; Resp 18; Pulse Ox 95% ; Weight 58.97 kg; Height 5 ft. 8 in. (172.72 cm); hs1 Pain 0/10; 10:27 Temp 99.3(TE); hs1 10:51 BP 148 / 61 (auto/); kc3 10:51 Pulse 102 MON; Pulse Ox 94% ; kc3 11:21 BP 129 / 66 (auto/); kc3 11:21 Pulse 104 MON; Pulse Ox 95% ; kc3 11:51 BP 124 / 59 (auto/); kc3 11:51 Pulse 102 MON; Pulse Ox 95% ; kc3 12:21 BP 125 / 61 (auto/); kc3 12:21 Pulse 104 MON; Pulse Ox 94% ; kc3 12:50 Pulse 96 MON; Pulse Ox 94% ; kc3 12:51 BP 109 / 61 (auto/); kc3 13:21 BP 118 / 58 (auto/); kc3 13:21 Pulse 98 MON; Pulse Ox 97% ; kc3 13:51 BP 125 / 64 (auto/); kc3 13:51 Pulse 98 MON; Pulse Ox 96% ; kc3 14:21 BP 106 / 72 (auto/); kc3 14:21 Pulse 100 MON; Pulse Ox 96% ; kc3 14:51 BP 108 / 57 (auto/); kc3 14:51 Pulse 98 MON; Pulse Ox 95% ; kc3 15:21 BP 113 / 58 (auto/); kc3 15:21 Pulse 98 MON; Pulse Ox 98% ; kc3 15:41 BP 124 / 60 (auto/); kc3 15:41 Pulse 100 MON; Pulse Ox 97% ; kc3 15:43 BP 124 / 60 LA Sitting (auto/reg); Pulse 70; Resp 20; Temp 99.9(TE); Pulse Ox 96% on bnb R/A; Pain 0/10; 16:40 BP 113 / 66 (auto/); kc3 16:41 Pulse 96 MON; Pulse Ox 98% ; kc3 17:10 BP 117 / 56 (auto/); kc3 17:11 Pulse 94 MON; Pulse Ox 98% ; kc3 17:34 Pulse 96 MON; Pulse Ox 99% ; kc3 17:40 BP 127 / 60 (auto/); kc3 17:41 Pulse 96 MON; kc3 18:12 BP 131 / 60; Pulse 98; Resp 18; Temp 99.3(TE); Pulse Ox 97% on 2 lpm NC; Pain 0/10; kc3 10:23 Body Mass Index 19.77 (58.97 kg, 172.72 cm) hs1 Vitals: 10:27 Glucose Measurement D-Stick in Triage- Normal. Log In Time N/A - ambulance arrival. hs1 ED Course: 10:13 Patient visited by Deisy Hobbs, Preschool Assistant Principal. deg 10:13 Patient moved to Waiting deg 10:14 Lupe Butler,RN is Primary Nurse. deg 10:14 Patient visited by Ignacia Muniz, JM. hs1 10:14 Patient moved to 5 deg 10:18 Triage Initiated hs1 10:22 Tahira Hi MD is Attending Physician. ml 10:22 Patient visited by Tahira Hi MD. ml 11:02 -Arterial Blood Gas Sent. kjn 11:10 Patient visited by Mic Stanley. jml1 11:10 EKG done. (by ED staff). Reviewed by Tahira Hi MD. jml1 11:30 Accessed using # 22 Carlos needle sterile technique, per hospital protocol. Inf[employer] kc3 in patient's anterior aspect of right upper chest. Clean & dry. Dressing intact. Good blood return. Flushes easily. 11:35 Phosphorous Level Sent. kc3 11:35 Magnesium Level Sent. kc3 11:35 Lactic Acid (Morton tube on ice) Sent. kc3 11:35 Troponin Sent. kc3 11:35 CIP Sent. kc3 11:35 -Blood Culture Sent. kc3 11:35 Lipase Sent. kc3 11:35 Amylase Sent. kc3 11:48 Patient visited by Lupe Butler RN. kc3 12:00 Chest, 1 View Returned. EDMS 12:31 Patient visited by Lupe Butler,JM. kc3 12:31 DIFFERENTIAL NO CHARGE Sent. kc3 12:39 CT Head Without Contrast Returned. EDMS 12:47 The patient / caregiver is instructed regarding the plan of care and ED course. kc3 13:00 Patient visited by Lupe Butler RN. kc3 13:03 Michael Diaz is Hospitalizing Provider. ml 13:10 [facility] Payment Agreement was scanned into [employer] and attached to record. jp5 13:59 PCR was scanned into [employer] and attached to record. gb 15:07 Inserted saline lock: 20 gauge in left antecubital area The patient tolerated the kc3 procedure well. 15:10 Patient visited by Lupe Butler RN. kc3 15:44 Patient visited by Louann Barrera PCA. bnb 15:51 No procedures done that require assistance. kc3 16:53 Chest, 1 View Returned. EDMS 16:54 CT Chest Angio R/O PE Returned. EDMS 17:03 Written Provider Order was scanned into [employer] and attached to record. deg 07/11 12:32 T-Sheet-- Draft Copy was scanned into [employer] and attached to record. gb 12:32 ECG/EKG was scanned into [employer] and attached to record. gb Administered Medications: 07/10 11:37 Drug: Albuterol 5 mg [albuterol sulfate 2.5 mg/0.5 mL solution for nebulization (1 mL)] kjn Route: Nebulizer; 11:37 Drug: Albuterol-Ipratropium 3 ml [ipratropium-albuterol 0.5 mg-3 mg(2.5 mg base)/3 mL kjn nebulization soln (3 mL)] Route: Inhalation; RT: 11:02 ABG's drawn from right brachial artery specimen sent pt. tolerated well. Initial Med kjn Neb Given as ordered. Respiratory: Breath sounds with crackles bilaterally. Order Results: Lab Order: CBC with Diff; SPEC'M 07/10/16 11:30 Test: WHITE BLOOD COUNT; Value: 8.5; Range: 4.0-10.0; Units: K/mm3; Status: F Test: RED BLOOD COUNT; Value: 2.20; Range: 4.30-6.10; Abnormal: Below low normal; Units: M/mm3; Status: F Test: HEMOGLOBIN; Value: 7.1; Range: 14.0-18.0; Abnormal: Below low normal; Units: g/dl; Status: F Test: HEMATOCRIT; Value: 20.9; Range: 42.0-52.0; Abnormal: Below low normal; Units: %; Status: F Test: MEAN CORPUSCULAR VOLUME; Value: 95.2; Range: 80.0-96.0; Units: fl; Status: F Test: MEAN CORPUSCULAR HEMOGLOBIN; Value: 32.4; Range: 27.0-33.0; Units: pg; Status: F Test: MEAN CORPUSCULAR HGB CONC; Value: 34.1; Range: 32.0-36.5; Units: g/dl; Status: F Test: RED CELL DISTRIBUTION WIDTH; Value: 20.5; Range: 11.5-14.5; Abnormal: Above high normal; Units: %; Status: F Test: PLATELET COUNT, AUTOMATED; Value: 26; Range: 150-450; Abnormal: Critical Low; Units: k/mm3; Status: F Test: NEUTROPHILS; Value: 67; Range: 35-75; Units: %; Status: F Test: LYMPHOCYTES; Value: 8; Range: 16-52; Abnormal: Below low normal; Units: %; Status: F Test: MONOCYTES; Value: 1; Range: 0-8; Units: %; Status: F Test: BLAST CELLS; Value: 21; Range: 0-0; Abnormal: Above high normal; Units: %; Status: F Test: ATYPICAL LYMPH; Value: 3; Range: 0-5; Units: %; Status: F Test: POLYCHROMASIA; Value: 1+; Status: F Test: ANISOCYTOSIS; Value: 2+; Status: F Test: MACROCYTOSIS; Value: 1+; Status: F Test: SMUDGE CELLS; Value: 1+; Status: F Lab Order: MED Profile; SPEC07/10/16 11:30 Test: GLUCOSE, FASTING; Value: 114; Range: 80-110; Abnormal: Above high normal; Units: MG/DL; Status: F Test: BLOOD UREA NITROGEN; Value: 16; Range: 7-18; Units: MG/DL; Status: F Test: CREATININE FOR GFR; Value: 1.32; Range: 0.70-1.30; Abnormal: Above high normal; Units: MG/DL; Status: F Test: GLOMERULAR FILTRATION RATE; Value: 58.7; Range: >49; Status: F Test: SODIUM LEVEL; Value: 129; Range: 136-145; Abnormal: Below low normal; Units: MEQ/L; Status: F Test: POTASSIUM SERUM; Value: 3.7; Range: 3.5-5.1; Units: MEQ/L; Status: F Test: CHLORIDE LEVEL; Value: 92; Range: 98-107; Abnormal: Below low normal; Units: MEQ/L; Status: F Test: CARBON DIOXIDE LEVEL; Value: 23; Range: 21-32; Units: MEQ/L; Status: F Test: ANION GAP; Value: 14; Range: 8-16; Units: MEQ/L; Status: F Test: CALCIUM LEVEL; Value: 8.3; Range: 8.8-10.2; Abnormal: Below low normal; Units: MG/DL; Status: F Test Note: ; Units are mL/min/1.73 m2 Chronic Kidney Disease Staging per NKF: Stage I & II GFR >=60 Normal to Mildly Decreased Stage III GFR 30-59 Moderately Decreased Stage IV GFR 15-29 Severely Decreased Stage V GFR <15 Very Little GFR Left ESRD GFR <15 on ELEVATOR OPERATOR Lab Order: Liver Profile; SPEC07/10/16 11:30 Test: AST/SGOT; Value: 20; Range: 15-37; Units: U/L; Status: F Test: ALT/SGPT; Value: 22; Range: 12-78; Units: U/L; Status: F Test: ALKALINE PHOSPHATASE; Value: 209; Range: 45-117; Abnormal: Above high normal; Units: U/L; Status: F Test: BILIRUBIN,TOTAL; Value: 0.4; Range: 0.2-1.0; Units: MG/DL; Status: F Test: BILIRUBIN,DIRECT; Value: 0.1; Range: 0.0-0.2; Units: MG/DL; Status: F Test: TOTAL PROTEIN; Value: 6.8; Range: 6.4-8.2; Units: GM/DL; Status: F Test: ALBUMIN; Value: 3.2; Range: 3.2-5.2; Units: GM/DL; Status: F Test: ALBUMIN/GLOBULIN RATIO; Value: 0.89; Range: 1.00-1.93; Abnormal: Below low normal; Status: F Lab Order: Amylase; [facility] 07/10/16 11:30 Test: AMYLASE; Value: 43; Range: 25-115; Units: U/L; Status: F Lab Order: Lipase; [facility] 07/10/16 11:30 Test: LIPASE; Value: 118; Range: 73-393; Units: U/L; Status: F Lab Order: CIP; [facility] 07/10/16 11:30 Test: CPK CREATINE PHOSPHOKINASE; Value: 103; Range: 39-308; Units: U/L; Status: F Test: CK-MB VALUE MASS; Value: 1.3; Range: 0.0-3.6; Units: NG/ML; Status: F Test: MB/CK RELATIVE INDEX; Value: 1.26; Range: < OR =4; Status: F Test Note: ; DIAGNOSIS CRITERIA MMB ng/ml Relative Index (RI) NON-AMI < or = 5 N/A [place] > 5 < or = 4 AMI > 5 > 4 Lab Order: Troponin; [facility] 07/10/16 11:30 Test: TROPONIN I; Value: < 0.02; Range: < 0.10; Units: NG/ML; Status: F Test Note: ; Troponin I Reference Interval for Gravy LOCI: 99th Percentile= 0.00-0.045 ng/ml Risk Stratification: <= 0.10 ng/ml Decreased Risk for Adverse Clinical Events. 0.10-1.50 ng/ml Increased Risk for Adverse Clinical Events. Evaluation of additional criterion and/or repeat testing in 2-6 hours is suggested to rule out myocardial damage. >= 1.50 ng/ml Indicative of Myocardial Injury. Lab Order: Lactic Acid (Morton tube on ice); 07/10/16 11:30 Test: LACTIC ACID SEPSIS PROTOCOL; Value: 1.1; Range: 0.4-2.0; Units: MMOL/L; Status: F Lab Order: -Arterial Blood Gas; 07/10/16 11:01 Test: ABG pH (ARTERIAL); Value: 7.540; Range: 7.350-7.450; Abnormal: Above high normal; Units: UNITS; Status: F Test: ABG PARTIAL PRESSURE CO2; Value: 28.4; Range: 35.0-45.0; Abnormal: Below low normal; Units: mmHg; Status: F Test: ABG PARTIAL PRESSURE O2; Value: 87.1; Range: 75.0-100.0; Units: mmHg; Status: F Test: ABG TOTAL CO2; Value: 24.6; Range: 23.0-31.0; Units: MEQ/L; Status: F Test: ABG HCO3; Value: 23.7; Range: 22.0-26.0; Units: MEQ/L; Status: F Test: ABG BASE EXCESS; Value: 1.4; Range: -2.0-2.0; Status: F Test: ABG STANDARD HCO3; Value: 25.7; Range: 22.0-26.0; Units: MEQ/L; Status: F Test: ABG O2 SATURATION; Value: 97.1; Range: 95.0-99.0; Units: %; Status: F Test: ABG DEVICE; Value: NASAL OSIEL; Status: F Lab Order: Magnesium Level; 07/10/16 11:30 Test: MAGNESIUM LEVEL; Value: 2.1; Range: 1.8-2.4; Units: MG/DL; Status: F Lab Order: Phosphorous Level; 07/10/16 11:30 Test: PHOSPHORUS LEVEL; Value: 3.5; Range: 2.5-4.9; Units: MG/DL; Status: F Lab Order: PLATELET ESTIMATE; 07/10/16 11:30 Test: PLATELET ESTIMATE; Value: MARKED DECREASE; Range: NORMAL; Status: F Lab Order: TYPE & SCREEN; SPEC'M 07/10/16 11:30 Test: AB SCREEN (INDIRECT MAX)VIS; Value: NEGATIVE; Status: F Test: IMMEDIATE SPIN CROSSMATCH; Value: [id number] O POSITIVE Compatible? Y; Status: F Test: IMMEDIATE SPIN CROSSMATCH; Value: [id number] O POSITIVE Compatible? Y; Status: F Lab Order: Fingerstick Blood Sugar; SPEC'M 07/10/16 10:21 Test: BEDSIDE GLUCOSE; Value: 107; Range: 80-115; Units: MG/DL; Status: F Test Note: ; RN Notified Doctor Notified Radiology Order: Chest, 1 View Test: Chest, 1 View REASON FOR EXAMINATION: Cough; AP PORTABLE CHEST: 07/10/2016.; ; Comparison: 04/03/2016, 10/17/2005 chest x-ray, CT chest 04/21/2016.; ; Clinical history: Cough.; ; Findings: There is an indwelling port catheter via the right jugular route with; tip in SVC unchanged. Lungs are hyperinflated. Linear atelectatic change left; CP angle and left lateral base is resolved from previous study. There is basilar; and other interstitial fibrotic change, mild but diffuse. There is right; infrahilar subsegmental atelectatic of the patchy density there. No dense; consolidation. There is no gross cardiomegaly allowing for portable technique.; The aorta is normal. Airway intact. No nodule, acute infiltrate, gross effusion; or mass. No widening of the mediastinum. Bones intact.; ; Impression:; ; 1. Underlying interstitial fibrosis without gross infiltrate, nodule, effusion; or edema. Some subtle right infrahilar patchy atelectasis suggested. The linear; atelectatic changes in the left CP angle and left lateral base are resolved since; the March 2016 study.; ; ; ; ; Signed by; Keo Urrutia MD 07/10/2016 04:21 P; Radiology Order: CT Head Without Contrast Test: CT Head Without Contrast REASON FOR EXAMINATION: weakness; CT HEAD WITHOUT CONTRAST:; ; HISTORY: Weakness.; ; Areas of decreased attention are present in the periventricular white matter.; This represents small vessel ischemic disease. There is no intraparenchymal; hemorrhage, mass or midline shift. The ventricular system and cortical sulci are; dilated consistent with mild volume loss. There is no extracerebral collection.; Mucosal thickening is present in the ethmoid, sphenoid and frontal sinuses, and; left mastoid air cells.; ; IMPRESSION:; ; 1. Small vessel ischemic disease.; ; 2. Mild volume loss.; ; ; Signed by; Dereje Elkins MD 07/10/2016 12:17 P; Radiology Order: CT Chest Angio R/O PE Test: CT Chest Angio R/O PE REASON FOR EXAMINATION: hypoxia; CT pulmonary angiogram: With IV contrast.; ; History: Hypoxia.; ; Comparison studies: April 21, [address] ; Contrast dose: 75 cc's of Isovue 370 are administered intravenously.; ; CT technique: Helical scanning is acquired and overlapping 1.5 mm and contiguous; 3 mm axial images are reformatted. In addition, a 3-D work station is deployed; to generate thick slab maximum intensity projection images in sagittal and; coronal imaging projections.; ; CT pulmonary angiographic findings: There is good opacification of the pulmonary; arterial tree and there is no CT evidence of pulmonary embolism. There is left; coronary artery vascular calcification. Thoracic aorta enhances homogeneously; and there is no evidence of aneurysm or dissection. Maximum intensity projection; images show no vessel cutoff or filling defect in the pulmonary arterial tree.; There is subsegmental atelectatic change in the left lower lobe and lingula at; the left base. There is an area of discoid atelectasis in the left upper lobe; more superiorly as well. No pulmonary mass lesion or definite infiltrate is; seen. No pleural or pericardial effusion is seen. No mediastinal or hilar; lymphadenopathy is observed. No adrenal lesion is seen. There is a right-sided; [id number] catheter. No bony destructive lesion is seen.; ; Impression:; ; No CT evidence of pulmonary embolism. Patchy areas of discoid atelectasis in the; left upper lobe, lingula, and left lower lobe. Left coronary artery vascular; calcification again noted. No other significant abnormality.; ; ; Signed by; Franklin Montero MD 07/10/2016 04:52 P; Outcome: 12:53 CT Study completed. kc3 13:03 Decision to Hospitalize by Provider. 15:37 CT Study completed. kc3 15:51 Discharge Assessment: patient administered narcotics - no. The following High Risk 3 Discharge criteria are identified: None. Admitted to PCU accompanied by nurse, family with patient, via stretcher, with oxygen, on monitor, with chart. Condition: stable. Admission hand-off: Report Faxed. Property :Personal belongings accompany Pt. 15:53 Patient left the ED. kc3 18:07 Admission hand-off: Report called to [facility]. kc3 18:17 Patient left the ED. kcs Signatures: Dispatcher [employer] EDMS Tahira Hi MD MD ml Sleeman, Kacey, RN RN kcs Deisy Hobbs, Preschool Assistant Principal Unit deg Radha Jovel, Reg Reg gb Ignacia Muniz RN RN hs1 Mic Stanley jml1 Ester Berry Jennalee jp5 Lupe ButlerRN RN kc3 Louann Barrera, EULA LEASING COORDINATOR bnb Corrections: (The following items were deleted from the chart) 12:51 12:45 Neurological: Level of Consciousness is awake, alert, obeys commands, Oriented to kc3 person, place, time, kc3 Chart Complete MTDD
--- NOTE | 2016-07-12 19:18 | EDDOCDS ---
Physician Documentation [facility] Name: Jacob Almaguer Age: 60 yrs Sex: Male : 1955 Arrival Date: 07/10/2016 Time: 10:12 Bed 5 Private MD: Disposition: 07/10 13:04 Critical Care:. ml Disposition: 07/10/16 13:03 Hospitalization ordered by Michael Diaz for Inpatient Admission. 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 - Bed requested for ICU. - Status is Inpatient Admission. kcs - Condition is Stable. - Problem is new. - Symptoms are unchanged. Historical: - Allergies: no known allergies; - Home Meds: 1. montelukast 10 mg oral tab 1 tab once daily 2. pantoprazole 40 mg oral TbEC 1 tab once daily 3. sirolimus 1 mg oral tab once daily 4. tamsulosin 0.4 mg oral cp24 1 cap once daily 5. triamcinolone 0.1% twice a day cream 6. acyclovir 200 mg Oral cap 2 caps 2 times per day 7. azithromycin 250 mg Oral tab 3 times a week 8. Chlorhexidine 0.12% solution 15mLs by mouth 2 times a day, swish and spit out. 9. fluconazole 200 mg Oral tab 1 tab once daily 10. Magnesium 1 tab twice a day - PMHx: Leukemia; Umbilical hernia; Bone marrow transplant; Stem cell transplant; - PSHx: fracture repair to right thumb; - Social history: Smoking status: Patient states was never smoker of tobacco. No barriers to communication noted, The patient speaks fluent Bruneian, Speaks appropriately for age. - Family history: Not pertinent. - : The pt / caregiver states he / she is not on anticoagulants. Home medication list is obtained from the patient. - Exposure Risk Screening:: None identified. Vital Signs: 10:21 BP 129 / 72 (auto/); hs1 10:23 Pulse 104 MON; Resp 18; Pulse Ox 95% ; Weight 58.97 kg / 130.01 lbs; Height 5 ft. 8 in. hs1 (172.72 cm); Pain 0/10; 10:27 Temp 99.3(TE); hs1 10:51 BP 148 / 61 (auto/); kc3 10:51 Pulse 102 MON; Pulse Ox 94% ; kc3 11:21 BP 129 / 66 (auto/); kc3 11:21 Pulse 104 MON; Pulse Ox 95% ; kc3 11:51 BP 124 / 59 (auto/); kc3 11:51 Pulse 102 MON; Pulse Ox 95% ; kc3 12:21 BP 125 / 61 (auto/); kc3 12:21 Pulse 104 MON; Pulse Ox 94% ; kc3 12:50 Pulse 96 MON; Pulse Ox 94% ; kc3 12:51 BP 109 / 61 (auto/); kc3 13:21 BP 118 / 58 (auto/); kc3 13:21 Pulse 98 MON; Pulse Ox 97% ; kc3 13:51 BP 125 / 64 (auto/); kc3 13:51 Pulse 98 MON; Pulse Ox 96% ; kc3 14:21 BP 106 / 72 (auto/); kc3 14:21 Pulse 100 MON; Pulse Ox 96% ; kc3 14:51 BP 108 / 57 (auto/); kc3 14:51 Pulse 98 MON; Pulse Ox 95% ; kc3 15:21 BP 113 / 58 (auto/); kc3 15:21 Pulse 98 MON; Pulse Ox 98% ; kc3 15:41 BP 124 / 60 (auto/); kc3 15:41 Pulse 100 MON; Pulse Ox 97% ; kc3 15:43 BP 124 / 60 LA Sitting (auto/reg); Pulse 70; Resp 20; Temp 99.9(TE); Pulse Ox 96% on bnb R/A; Pain 0/10; 16:40 BP 113 / 66 (auto/); kc3 16:41 Pulse 96 MON; Pulse Ox 98% ; kc3 17:10 BP 117 / 56 (auto/); kc3 17:11 Pulse 94 MON; Pulse Ox 98% ; kc3 17:34 Pulse 96 MON; Pulse Ox 99% ; kc3 17:40 BP 127 / 60 (auto/); kc3 17:41 Pulse 96 MON; kc3 18:12 BP 131 / 60; Pulse 98; Resp 18; Temp 99.3(TE); Pulse Ox 97% on 2 lpm NC; Pain 0/10; kc3 10:23 Body Mass Index 19.77 (58.97 kg, 172.72 cm) hs1 MDM: 10:42 IV Saline Lock ordered. ml 10:42 -Blood Culture (Adults Only), peripheral from different site, or from device/port/PICC ml etc. if present ordered. 10:42 Albuterol 5 mg Nebulizer once ordered. ml 10:42 Albuterol-Ipratropium 3 ml Inhalation once ordered. ml 10:42 Call Respiratory ordered. ml 10:42 Call Respiratory ordered. ml 10:42 CBC with Diff Ordered. EDMS 10:42 MED Profile Ordered. EDMS 10:43 Liver Profile Ordered. EDMS 10:43 Amylase Ordered. EDMS 10:43 Lipase Ordered. EDMS 10:43 -Blood Culture Ordered. EDMS 10:43 CIP Ordered. EDMS 10:43 Troponin Ordered. EDMS 10:43 Lactic Acid (Morton tube on ice) Ordered. EDMS 10:43 -Arterial Blood Gas Ordered. EDMS 10:43 Magnesium Level Ordered. EDMS 10:43 Phosphorous Level Ordered. EDMS 10:43 ECG WITH READING ER PHYS+CARDIAG ordered. EDMS 10:44 Chest, 1 View Ordered. EDMS 10:44 CT Head Without Contrast Ordered. EDMS 10:46 BED REQUEST+ADM ordered. EDMS 11:00 Call Respiratory complete. deg 11:03 -Blood Culture (Adults Only), peripheral from different site, or from device/port/PICC deg etc. if present complete. 11:04 BLOOD CULTURES Ordered. EDMS 11:51 DIFFERENTIAL NO CHARGE Ordered. EDMS 11:51 PLATELET ESTIMATE Ordered. EDMS 11:53 Call Respiratory complete. kc3 11:57 CBC with Diff Reviewed. ml 11:57 -Arterial Blood Gas Reviewed. ml 12:00 TYPE & SCREEN Ordered. EDMS 12:09 Fingerstick Blood Sugar Ordered. EDMS 12:39 CBC with Diff Reviewed. ml 12:39 MED Profile Reviewed. ml 12:39 Liver Profile Reviewed. ml 12:39 Amylase Reviewed. ml 12:39 Lipase Reviewed. ml 12:39 CIP Reviewed. ml 12:39 Troponin Reviewed. ml 12:39 Lactic Acid (Morton tube on ice) Reviewed. ml 12:39 Magnesium Level Reviewed. ml 12:39 Phosphorous Level Reviewed. ml 12:39 PLATELET ESTIMATE Reviewed. ml 12:39 Fingerstick Blood Sugar Reviewed. ml 12:39 Chest, 1 View Reviewed. ml 12:39 CT Head Without Contrast Reviewed. ml 12:59 CT Chest Angio R/O PE Ordered. EDMS 13:10 [facility] Payment Agreement was scanned into [employer] and attached to record. jp5 13:10 Financial registration complete. jp5 13:32 URINALYSIS Ordered. EDMS 13:32 URINE CULTURE Ordered. EDMS 13:34 Admission / Observation Status ordered. EDMS 13:34 2 GRAM SODIUM DIET ordered. EDMS 13:53 OLIGOCLONAL BANDS, CSF Ordered. EDMS 13:53 IMMUNOGLOBULIN G CSF Ordered. EDMS 13:53 CSF GLUCOSE Ordered. EDMS 13:53 CSF T PROTEIN Ordered. EDMS 13:53 CSF BACTERIAL ANTIGENS Ordered. EDMS 13:53 CELL COUNT/DIFF CSF Ordered. EDMS 13:53 CSF CULTURE AND GRAM STAIN Ordered. EDMS 13:54 VIRAL CULTURE Ordered. EDMS 13:54 FUNGUS SMEAR & CULTURE Ordered. EDMS 13:54 NON FOOD CONCESSION MANAGER/CYTOLOGY REQ FOR SERVI Ordered. EDMS 13:54 NON FOOD CONCESSION MANAGER/CYTOLOGY REQ FOR SERVI Ordered. EDMS 13:56 IRRADIAT LEUKOREDUC PACK CELLS Ordered. EDMS 13:59 PCR was scanned into [employer] and attached to record. gb 14:48 SPUTUM CULTURE AND GRAM STAIN Ordered. EDMS 15:10 FLUORO GUID FOR NEEDLE PLACEMT Ordered. EDMS 17:03 Written Provider Order was scanned into [employer] and attached to record. deg 17:49 IRRADIATED PHERESIS PLATELETS Ordered. EDMS 07/11 12:32 T-Sheet-- Draft Copy was scanned into [employer] and attached to record. gb 12:32 ECG/EKG was scanned into [employer] and attached to record. gb Administered Medications: 07/10 11:37 Drug: Albuterol 5 mg [albuterol sulfate 2.5 mg/0.5 mL solution for nebulization (1 mL)] kjn Route: Nebulizer; 11:37 Drug: Albuterol-Ipratropium 3 ml [ipratropium-albuterol 0.5 mg-3 mg(2.5 mg base)/3 mL kjn nebulization soln (3 mL)] Route: Inhalation; Critical Care Time: 13:04 Critical care time: Bedside Care: 90 minutes, Consultation: 10 minutes. Total time: 100 ml minutes Signatures: Dispatcher [employer] EDMS Tahira Hi MD MD ml Sleeman, Kacey, JM RN Deisy Shaw, Scarf Gluer Unit deg Radha Jovel, Reg Reg gb Ignacia Muniz, RN RN hs1 Juani Benedict jp5 Lupe Butler,RN RN kc3 Carlene Armstrong, RN RN cachorrog Ester Berry The chart was reviewed and I authenticate all verbal orders and agree with the evaluation and treatment provided.Corrections: (The following items were deleted from the chart) 13:52 13:34 TYPE & SCREEN ordered. EDMS EDMS 13:55 11:59 PACKED CELLS+BBK ordered. EDMS EDMS 13:55 13:52 IRRADIAT LEUKOREDUC PACK CELLS ordered. EDMS EDMS 13:56 13:52 TYPE & SCREEN ordered. EDMS EDMS 15:49 13:51 FLUORO GUID FOR NEEDLE PLACEMT ordered. EDMS EDMS 18:12 15:02 PHERESIS PLATELETS ordered. EDMS EDMS Attachments: 13:10 [facility] Payment Agreement jp5 17:03 Written Provider Order deg 07/11 12:32 T-Sheet-- Draft Copy gb 12:32 ECG/EKG gb Chart Complete MTDD
--- NOTE | 2016-07-12 19:18 | EDDOCDS ---
Physician Documentation [facility] Name: Jacob Almaguer Age: 60 yrs Sex: Male : 1955 Arrival Date: 07/10/2016 Time: 10:12 Bed 5 Private MD: Disposition: 07/10 13:04 Critical Care:. ml Disposition: 07/10/16 13:03 Hospitalization ordered by Michael Diaz for Inpatient Admission. 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 - Bed requested for ICU. - Status is Inpatient Admission. kcs - Condition is Stable. - Problem is new. - Symptoms are unchanged. Historical: - Allergies: no known allergies; - Home Meds: 1. montelukast 10 mg oral tab 1 tab once daily 2. pantoprazole 40 mg oral TbEC 1 tab once daily 3. sirolimus 1 mg oral tab once daily 4. tamsulosin 0.4 mg oral cp24 1 cap once daily 5. triamcinolone 0.1% twice a day cream 6. acyclovir 200 mg Oral cap 2 caps 2 times per day 7. azithromycin 250 mg Oral tab 3 times a week 8. Chlorhexidine 0.12% solution 15mLs by mouth 2 times a day, swish and spit out. 9. fluconazole 200 mg Oral tab 1 tab once daily 10. Magnesium 1 tab twice a day - PMHx: Leukemia; Umbilical hernia; Bone marrow transplant; Stem cell transplant; - PSHx: fracture repair to right thumb; - Social history: Smoking status: Patient states was never smoker of tobacco. No barriers to communication noted, The patient speaks fluent Moldovan, Speaks appropriately for age. - Family history: Not pertinent. - : The pt / caregiver states he / she is not on anticoagulants. Home medication list is obtained from the patient. - Exposure Risk Screening:: None identified. Vital Signs: 10:21 BP 129 / 72 (auto/); hs1 10:23 Pulse 104 MON; Resp 18; Pulse Ox 95% ; Weight 58.97 kg / 130.01 lbs; Height 5 ft. 8 in. hs1 (172.72 cm); Pain 0/10; 10:27 Temp 99.3(TE); hs1 10:51 BP 148 / 61 (auto/); kc3 10:51 Pulse 102 MON; Pulse Ox 94% ; kc3 11:21 BP 129 / 66 (auto/); kc3 11:21 Pulse 104 MON; Pulse Ox 95% ; kc3 11:51 BP 124 / 59 (auto/); kc3 11:51 Pulse 102 MON; Pulse Ox 95% ; kc3 12:21 BP 125 / 61 (auto/); kc3 12:21 Pulse 104 MON; Pulse Ox 94% ; kc3 12:50 Pulse 96 MON; Pulse Ox 94% ; kc3 12:51 BP 109 / 61 (auto/); kc3 13:21 BP 118 / 58 (auto/); kc3 13:21 Pulse 98 MON; Pulse Ox 97% ; kc3 13:51 BP 125 / 64 (auto/); kc3 13:51 Pulse 98 MON; Pulse Ox 96% ; kc3 14:21 BP 106 / 72 (auto/); kc3 14:21 Pulse 100 MON; Pulse Ox 96% ; kc3 14:51 BP 108 / 57 (auto/); kc3 14:51 Pulse 98 MON; Pulse Ox 95% ; kc3 15:21 BP 113 / 58 (auto/); kc3 15:21 Pulse 98 MON; Pulse Ox 98% ; kc3 15:41 BP 124 / 60 (auto/); kc3 15:41 Pulse 100 MON; Pulse Ox 97% ; kc3 15:43 BP 124 / 60 LA Sitting (auto/reg); Pulse 70; Resp 20; Temp 99.9(TE); Pulse Ox 96% on bnb R/A; Pain 0/10; 16:40 BP 113 / 66 (auto/); kc3 16:41 Pulse 96 MON; Pulse Ox 98% ; kc3 17:10 BP 117 / 56 (auto/); kc3 17:11 Pulse 94 MON; Pulse Ox 98% ; kc3 17:34 Pulse 96 MON; Pulse Ox 99% ; kc3 17:40 BP 127 / 60 (auto/); kc3 17:41 Pulse 96 MON; kc3 18:12 BP 131 / 60; Pulse 98; Resp 18; Temp 99.3(TE); Pulse Ox 97% on 2 lpm NC; Pain 0/10; kc3 10:23 Body Mass Index 19.77 (58.97 kg, 172.72 cm) hs1 MDM: 10:42 IV Saline Lock ordered. ml 10:42 -Blood Culture (Adults Only), peripheral from different site, or from device/port/PICC ml etc. if present ordered. 10:42 Albuterol 5 mg Nebulizer once ordered. ml 10:42 Albuterol-Ipratropium 3 ml Inhalation once ordered. ml 10:42 Call Respiratory ordered. ml 10:42 Call Respiratory ordered. ml 10:42 CBC with Diff Ordered. EDMS 10:42 MED Profile Ordered. EDMS 10:43 Liver Profile Ordered. EDMS 10:43 Amylase Ordered. EDMS 10:43 Lipase Ordered. EDMS 10:43 -Blood Culture Ordered. EDMS 10:43 CIP Ordered. EDMS 10:43 Troponin Ordered. EDMS 10:43 Lactic Acid (Morton tube on ice) Ordered. EDMS 10:43 -Arterial Blood Gas Ordered. EDMS 10:43 Magnesium Level Ordered. EDMS 10:43 Phosphorous Level Ordered. EDMS 10:43 ECG WITH READING ER PHYS+CARDIAG ordered. EDMS 10:44 Chest, 1 View Ordered. EDMS 10:44 CT Head Without Contrast Ordered. EDMS 10:46 BED REQUEST+ADM ordered. EDMS 11:00 Call Respiratory complete. deg 11:03 -Blood Culture (Adults Only), peripheral from different site, or from device/port/PICC deg etc. if present complete. 11:04 BLOOD CULTURES Ordered. EDMS 11:51 DIFFERENTIAL NO CHARGE Ordered. EDMS 11:51 PLATELET ESTIMATE Ordered. EDMS 11:53 Call Respiratory complete. kc3 11:57 CBC with Diff Reviewed. ml 11:57 -Arterial Blood Gas Reviewed. ml 12:00 TYPE & SCREEN Ordered. EDMS 12:09 Fingerstick Blood Sugar Ordered. EDMS 12:39 CBC with Diff Reviewed. ml 12:39 MED Profile Reviewed. ml 12:39 Liver Profile Reviewed. ml 12:39 Amylase Reviewed. ml 12:39 Lipase Reviewed. ml 12:39 CIP Reviewed. ml 12:39 Troponin Reviewed. ml 12:39 Lactic Acid (Morton tube on ice) Reviewed. ml 12:39 Magnesium Level Reviewed. ml 12:39 Phosphorous Level Reviewed. ml 12:39 PLATELET ESTIMATE Reviewed. ml 12:39 Fingerstick Blood Sugar Reviewed. ml 12:39 Chest, 1 View Reviewed. ml 12:39 CT Head Without Contrast Reviewed. ml 12:59 CT Chest Angio R/O PE Ordered. EDMS 13:10 [facility] Payment Agreement was scanned into [employer] and attached to record. jp5 13:10 Financial registration complete. jp5 13:32 URINALYSIS Ordered. EDMS 13:32 URINE CULTURE Ordered. EDMS 13:34 Admission / Observation Status ordered. EDMS 13:34 2 GRAM SODIUM DIET ordered. EDMS 13:53 OLIGOCLONAL BANDS, CSF Ordered. EDMS 13:53 IMMUNOGLOBULIN G CSF Ordered. EDMS 13:53 CSF GLUCOSE Ordered. EDMS 13:53 CSF T PROTEIN Ordered. EDMS 13:53 CSF BACTERIAL ANTIGENS Ordered. EDMS 13:53 CELL COUNT/DIFF CSF Ordered. EDMS 13:53 CSF CULTURE AND GRAM STAIN Ordered. EDMS 13:54 VIRAL CULTURE Ordered. EDMS 13:54 FUNGUS SMEAR & CULTURE Ordered. EDMS 13:54 NON OPERATIONS OFFICER TRUST DEPARTMENT/CYTOLOGY REQ FOR SERVI Ordered. EDMS 13:54 NON OPERATIONS OFFICER TRUST DEPARTMENT/CYTOLOGY REQ FOR SERVI Ordered. EDMS 13:56 IRRADIAT LEUKOREDUC PACK CELLS Ordered. EDMS 13:59 PCR was scanned into [employer] and attached to record. gb 14:48 SPUTUM CULTURE AND GRAM STAIN Ordered. EDMS 15:10 FLUORO GUID FOR NEEDLE PLACEMT Ordered. EDMS 17:03 Written Provider Order was scanned into [employer] and attached to record. deg 17:49 IRRADIATED PHERESIS PLATELETS Ordered. EDMS 07/11 12:32 T-Sheet-- Draft Copy was scanned into [employer] and attached to record. gb 12:32 ECG/EKG was scanned into [employer] and attached to record. gb Administered Medications: 07/10 11:37 Drug: Albuterol 5 mg [albuterol sulfate 2.5 mg/0.5 mL solution for nebulization (1 mL)] kjn Route: Nebulizer; 11:37 Drug: Albuterol-Ipratropium 3 ml [ipratropium-albuterol 0.5 mg-3 mg(2.5 mg base)/3 mL kjn nebulization soln (3 mL)] Route: Inhalation; Critical Care Time: 13:04 Critical care time: Bedside Care: 90 minutes, Consultation: 10 minutes. Total time: 100 ml minutes Signatures: Dispatcher [employer] EDMS Tahira Hi MD MD ml Sleeman, Kacey, JM RN Deisy Shaw, Electronics Repair Technician Unit deg Radha Jovel, Reg Reg gb Ignacia Muniz, RN RN hs1 Juani Benedict jp5 Lupe Butler,RN RN kc3 Carlene Armstrong, RN RN cachorrog Ester Berry The chart was reviewed and I authenticate all verbal orders and agree with the evaluation and treatment provided.Corrections: (The following items were deleted from the chart) 13:52 13:34 TYPE & SCREEN ordered. EDMS EDMS 13:55 11:59 PACKED CELLS+BBK ordered. EDMS EDMS 13:55 13:52 IRRADIAT LEUKOREDUC PACK CELLS ordered. EDMS EDMS 13:56 13:52 TYPE & SCREEN ordered. EDMS EDMS 15:49 13:51 FLUORO GUID FOR NEEDLE PLACEMT ordered. EDMS EDMS 18:12 15:02 PHERESIS PLATELETS ordered. EDMS EDMS Attachments: 13:10 [facility] Payment Agreement jp5 17:03 Written Provider Order deg 07/11 12:32 T-Sheet-- Draft Copy gb 12:32 ECG/EKG gb Chart Complete MTDD
[2016-07-12 20:00] VITALS: BP 111/66
[2016-07-12] MEDS: MONTELUKAST 10 MG TAB PO SCH (20:30)
[2016-07-13] MEDS: PIPERACILLIN/TAZOBACTAM SOD 3.375 GM in D5W MINI-BAG PLUS 50 ML IV SCH (00:16)
[2016-07-13 05:35] LABS: ALBUMIN 2.9 GM/DL (3.2-5.2); ALBUMIN/GLOBULIN RATIO 0.76 (1.00-1.93); ALKALINE PHOSPHATASE 258 U/L (45-117); ALT/SGPT 24 U/L (12-78); ANION GAP 11 MEQ/L (8-16); AST/SGOT 24 U/L (15-37); BILIRUBIN,TOTAL 0.7 MG/DL (0.2-1.0); BLOOD UREA NITROGEN 10 MG/DL (7-18); CALCIUM LEVEL 8.5 MG/DL (8.8-10.2); CARBON DIOXIDE LEVEL 26 MEQ/L (21-32); CHLORIDE LEVEL 94 MEQ/L (98-107); CREATININE FOR GFR 1.26 MG/DL (0.70-1.30); DIFF SLIDE NUMBER 37; GLOMERULAR FILTRATION RATE > 60.0 (>49); GLUCOSE, FASTING 96 MG/DL (80-110); MAGNESIUM LEVEL 1.9 MG/DL (1.8-2.4); MEAN CORPUSCULAR HEMOGLOBIN 31.4 pg (27.0-33.0); MEAN CORPUSCULAR HGB CONC 34.8 g/dl (32.0-36.5); MEAN CORPUSCULAR VOLUME 90.1 fl (80.0-96.0); POTASSIUM SERUM 3.4 MEQ/L (3.5-5.1); RED CELL DISTRIBUTION WIDTH 19.1 % (11.5-14.5); SODIUM LEVEL 131 MEQ/L (136-145); TOTAL PROTEIN 6.7 GM/DL (6.4-8.2); WHITE BLOOD COUNT 10.8 K/mm3 (4.0-10.0)
--- NOTE | 2016-07-13 05:45 | PHACANCOPD ---
PHARMACY VANCOMYCIN DOSING Pt Demographics Demographics Patient Age:60 , Weight:60.500 , Gender: male Adjusted Body Weight Date: 07/10/16, Adjusted Body Weight: Kg Vancomycin Vancomycin indication: HCAP Vancomycin Target Ranges: 15-20 mcg/ml Vancomycin Load Y/N: Yes Load Dose Date Time Vancomycin Load Dose: 1500mg Date: 07/10/16 Time: Vancomycin Dose Date: 07/13/16. Current Vancomycin Dose: [750mg iv q12h] Date: 07/10/16. Current Vancomycin Dose: [1g IV Q12H] Intermittent Dosing?: No Labs Micro Microbiology 07/10/16 Blood Culture - Preliminary, Resulted No Growth after 48 hours. All Specime... 07/10/16 Blood Culture - Preliminary, Resulted No Growth after 48 hours. All Specime... 07/11/16 Fungal Smear, Received Pending 07/11/16 Fungal Culture, Received Pending 07/11/16 Viral Culture, Received Pending 07/11/16 Gram Stain - Final, Resulted 07/11/16 CSF Culture, Resulted Pending 07/11/16 Gram Stain - Final, Resulted 07/11/16 Sputum Culture, Resulted Pending 07/10/16 MRSA Screen - Final, Complete 07/10/16 Urine Culture - Final, Complete Creatinine Clearance Date:07/10/16. Estimated Creatinine Clearance: [~56.9ml/min]. Assessment and Plan Maintaining Current Dose?: No Reason for dose change: Trough too high Pharmacist Note Pharmacist Note Date: 07/13/16. Pharmacist note:07/12 trough was drawn during infusion:redraw today( 07/13)resulted in trough of 24.7-will adjust Vancomycin regimen to 750mg IV Q12H to begin@1300 today.-will to continue to monitor SCR and levels Date: 07/10/16. Pharmacist note: Day #1 empiric zosyn/vancomycin initiated with a 1500mg loading dose, followed by a maintenance regimen of 1g IV Q12H for the treatment of HCAP - aiming for a goal trough of 15-20 mcg/ml. WBC currently WNL , and scr currently elevated - baseline ~ 1.08. 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 No PMH of vanco use or MRSA here at [facility]. We will monitor the patient and scheduled a trough accordingly. [facility] Jul 13, 2016 05:45
[2016-07-13] MEDS: SLF 3 ML SYR IV SCH ×2 (05:51→13:06)
[2016-07-13 06:46] LABS: PLATELET COUNT, AUTOMATED 49 k/mm3 (150-450)
[2016-07-13 07:36] LABS: BASOPHILS 1 % (0-4); BLAST CELLS 23 % (0-0); NUCLEATED RED BLOOD CELL 1 % (0-0)
[2016-07-13 07:37] LABS: ANISOCYTOSIS 2+; MICROCYTOSIS 1+; POIKILOCYTOSIS 1+
[2016-07-13 08:00] VITALS: BP 143/75
[2016-07-13] MEDS: ALBUTEROL SULFATE 2.5 MG/0.5 ML INH NEB SOLN NEB SCH ×2 (08:00)
[2016-07-13] MEDS: SIROLIMUS 1 MG PO SCH (08:49)
[2016-07-13] MEDS: TAMSULOSIN 0.4 MG CAP PO SCH (08:49)
[2016-07-13] MEDS: PANTOPRAZOLE 40MG TAB (PROTONIX) PO SCH (08:49)
[2016-07-13] MEDS: ACYCLOVIR 200 MG CAPSULE PO SCH (08:50)
[2016-07-13] MEDS: SODIUM CHLORIDE 0.9% INJ 10 ML SYR IV SCH (09:00)
[2016-07-13] MEDS: TRIAMCINOLONE ACET 0.1% CREAM 80 GM TOP SCH (09:00)
[2016-07-13] MEDS: SYMBICORT 160/4.5MCG INHALER 6GM INH SCH (09:20)
[2016-07-13] MEDS ORDERED: ATRO1OPD PO (10:28)
[2016-07-13] MEDS ORDERED: MORP1SOL PO (10:28)
[2016-07-13] MEDS ORDERED: LORA1TAB12 PO (10:28)
[2016-07-13] MEDS ORDERED: VANCOMYCIN HCL 750 MG, VIAL MATE ADAPTER 1 EACH in D5W 250 ML IV SCH (13:00)
--- NOTE | 2016-07-17 21:05 | DSES ---
DATE OF ADMISSION: 07/10/2016 DATE OF DISCHARGE: 07/13/2016 ONCOLOGIST: Dr. Day and Dr. Barrera at [place]. PRIVATE CARE PROVIDER: Ilsa Gan MD DISCHARGE DIAGNOSES: 1. 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 2. Chronic inflammatory demyelinating polyneuropathy (CIDP). 3. Anemia. 4. Thrombocytopenia. 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 6. Benign prostatic hypertrophy (BPH). 7. Obstructive airway disease. DISCHARGE MEDICATIONS: - atropine sulfate 1% solution, 1-2 drops by mouth every two hours as needed for terminal secretions - lorazepam 0.5 tablet, by mouth every four hours as needed for agitation or anxiety - morphine sulfate 0.25 to 1 mg every two hours as needed for pain or dyspnea - Acyclovir 400 mg by mouth twice a day - albuterol sulfate two puffs inhalation four times a day as needed shortness of breath - azithromycin 250 mg three times a week - Symbicort 160/4.5 two puffs inhalation twice a day - fluconazole 200 mg at bedtime - magnesium oxide 400 mg by mouth twice a day - montelukast 10 mg by mouth at bedtime - pantoprazole 40 mg by mouth daily - sirolimus 1 mg by mouth daily - tamsulosin 0.4 mg one capsule by mouth twice a day - triamcinolone acetate 0.1% cream one dose topically twice a day HOSPITAL COURSE: This is a 60-year-old male with a relapse of chronic myelomonocytic leukemia with increased blasts which has been progressing since March 2016. The patient had a bone marrow transplant in September 2015 and then relapsed in March 2016 and has been having progressive increase in his blasts in spite of being on azathioprine therapy. The patient presented to our emergency room with bilateral lower extremity progressive weakness and was seen by neurology and diagnosed with chronic inflammatory demyelinating polyneuropathy (CIDP). Dr. Tubbs his transplant medical oncologist at [facility] was consulted along with Dr. Day our oncologist here in [place] and as per both of them, the patient was no longer a candidate for additional chemotherapy because of his suboptimal performance status and poor prognosis. The patient had two units of blood transfusion and two units of blood transfusion this admission and had lumbar puncture done which showed high protein of 90, only 13 WBCs and was presumably diagnosed with CIDP, however in view of his progressive leukemia, it ws felt that any treatment for CIDP would not make much difference in his overall prognosis so the patient opted not to go for any intravenous immunoglobulin (IVIG) or high dose of steroid therapy, and the patient opted for hospice, and hospice was consulted. The patient was discharged home under home hospice. PHYSICAL EXAMINATION: VITAL SIGNS: Temperature 99, pulse 93, respirations 22, blood pressure 143/75, pulse oximetry 96% on room air. GENERAL: The patient is awake, alert, and oriented times three sitting up in bed in no acute distress. HEENT: Normocephalic atraumatic. Moist mucous membranes. Anicteric eyes. CHEST: Bilateral mild wheezing and diffuse lower crackles. CARDIOVASCULAR: S1, S2 regular. No murmurs, rubs, gallops. ABDOMEN: Soft, nontender. Bowel sounds present. EXTREMITIES: No edema. SKIN: There is a diffuse rash. LABORATORY DATA: WBC 10.8, hemoglobin 8.6, platelets 49, blasts 23%. Sodium 131, potassium 3.4, chloride 94, bicarbonate 26, BUN 10, creatinine 1.2, glucose 96, calcium 8.5. Liver function test normal, alkaline phosphatase 258, albumin 2.9. DISPOSITION: The patient is discharged home in stable condition under home hospice. DISCHARGE INSTRUCTIONS: The patient is to followup with hospice, regular diet, activities as tolerated.
== END 2016-07-13 15:00 | disposition hospice, home (50) | DRG 690 ==
LOC: M ED 10:12 → M ED INP 13:23 → M PCU 16:02 → M ED INP 16:37 → M ICU 18:20
PROVIDERS: ADMIT Internal Medicine; ATTEND Internal Medicine Nephrology
PROC: 009U3ZX Drainage of Spinal Canal, Percutaneous Approach, Diagnostic (ICD-10-PCS; principal; 2016-07-11)
DX: C92 Myeloid leukemia (principal); D64.81 Anemia due to antineoplastic chemotherapy; D69.6 Thrombocytopenia, unspecified; N40.0 Benign prostatic hyperplasia without lower urinary tract symptoms; J44.9 Chronic obstructive pulmonary disease, unspecified; D89.813 Graft-versus-host disease, unspecified; G61.81 Chronic inflammatory demyelinating polyneuritis; Z79.899 Other long term (current) drug therapy; F41.9 Anxiety disorder, unspecified; N18.3 Chronic kidney disease, stage 3 (moderate)